=== PATIENT | male | born 1975 | race Caucasian/White ===

== ENCOUNTER 2020-05-18 13:23 | Outpatient (REF) | payer OTHER, SELFPAY | END 2020-05-18 13:24 | disposition home or self-care (01) | LOC: HO.LAB 13:23 | PROVIDERS: Visit Provider Internal Medicine | DX: Z20.828 Contact with and (suspected) exposure to other viral communicable diseases (principal) | CPT/HCPCS: U0003 ==

== ENCOUNTER 2020-09-18 22:15 | Emergency (ER) | payer OTHER, SELFPAY ==
[2020-09-18 22:18] VITALS: BP 208/100; PULSE 85; RESP 18; TEMP 36.4; O2SAT 98; BMI 38.8
[2020-09-18 22:38] LABS: Glucose Urine UA NEG (NEG); Leukocyte Esterase Urine NEG (NEG); Nitrite Urine NEG (NEG); Urine Blood 1+ (NEG); Urine Ketones NEG (NEG); Urine Protein NEG (NEG-TRACE)
[2020-09-18 22:40] LABS: Appearance Urine CLEAR; Color Urine YELLOW
[2020-09-18 22:42] LABS: Bacteria Urine TRACE /LPF; RBC Urine 0-2 /HPF (0); Squamous Epithelial Cell Urine TRACE /LPF; WBC Urine 0-2 /HPF (0-4)
[2020-09-18 23:05] VITALS: BP 175/110; PULSE 85; RESP 20
--- NOTE | 2020-09-18 23:08 | PC.NURSE ---
Pt ambulating from Triage into room 12. Pt is CAOx4, speaking full sentences, ambulating with a steady gait. Pt reports left sided lower back pain that started last week. Pt was seen by his PCP and prescribed 4 days of Meloxicam. Pt reports some relief while on Meloxicam. 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 Pt reports a family history of kidney stones, denies any history of kidney stones himself. Pt denies fever, -N/V/D, denies urinary symptoms. Pt notably anxious, concerned about his elevated BP, reports a slow pulse last night so he did not take his Atenolol. States he drove to his [facility] and obtained a 12 lead EKG on himself last night, pt states my EKG looked absolutely perfect. VSS at this time, pt noted to be hypertensive. Plan to monitor BP. Awaiting primary MD salazar.
--- NOTE | 2020-09-18 23:34 | ECG_ITS ---
Test Reason : HTN Blood Pressure : / mmHG Vent. Rate : 081 BPM Atrial Rate : 081 BPM P-R Int : 188 ms QRS Dur : 080 ms QT Int : 370 ms P-R-T Axes : 044 005 053 degrees QTc Int : 429 ms Normal sinus rhythm Normal ECG When compared with ECG of 18-SEP-2020 23:52, No significant change was found Referred By: Eliza Barba Electronically Signed By: CHRISTAL ANDREWS
[2020-09-18 23:48] VITALS: BP 140/99; PULSE 86; RESP 20
--- NOTE | 2020-09-18 23:52 | ED_ITS ---
HPI - General Adult General Chief complaint: Abdominal Pain Stated complaint: Multiple complaints Time Seen by Provider: 09/18/20 23:04 Source: patient Mode of arrival: ambulatory Limitations: no limitations History of Present Illness HPI narrative: Patient comes to emergency room complaining of ?feeling floaty . Patient states that he has a sensation when his blood pressure is high. 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 Patient usually takes atenolol for anxiety, which usually does help with his blood pressure. However, patient does not have other treatment for blood pressure. Of note, patient patient complaining of left lower back pain, thinks he pulled a muscle, he went to see his primary care physician on September 13. Patient states he took meloxicam, initially helped, but he still having discomfort. Patient denies hematuria or dysuria, no fever chills. Patient states that the most concerning prior to these blood pressure. Patient denies chest pain, no shortness of breath, no diaphoresis. Related Data Previous Rx's Medication Instructions Recorded atenolol 50 mg tablet 50 mg PO DAILY #90 tab 07/23/20 bupropion HCl 150 mg tablet,12 hr 150 mg PO BID 90 Days #180 tab 08/02/20 sustained-release meloxicam 7.5 mg tablet 7.5 mg PO DAILY 4 Days #5 tab 09/13/20 losartan 25 mg PO DAILY #30 tab 09/19/20 Allergies Allergy/AdvReac Type Severity Reaction Status Date / Time Penicillins [PENICILLINS] Allergy Severe NAUSEA & Unverified 04/05/20 15:26 VOMITING bee pollen [BEE STINGS] Allergy Unknown UNKNOWN Unverified 04/05/20 15:26 penicillamine Allergy Unknown Verified 03/19/20 00:00 bees, wasps Allergy Unknown Uncoded 03/19/20 00:00 BEES/WASPS Allergy Unknown Uncoded 04/18/19 00:00 penicillin Allergy Unknown Uncoded 04/18/19 00:00 Review of Systems Review of Systems: Constitutional : No Weight loss, No Fever, No Chills, No Night Sweats, No Fatigue, No Malaise ENT/Mouth : No Hearing loss, No Ear Pain, No Nasal Congestion, No Sinus Pain, No Hoarseness, No sore throat, No Rhinorrhea, No Swallowing Difficulty Eyes: No Eye Pain, No Swelling, No Redness, No Foreign Body, No Discharge, No Vision Changes Cardiovascular : No Chest Pain, No SOB, No Dyspnea on Exertion, No Orthopnea, No Edema, No Palpitations Respiratory : No Cough, No Sputum, No Wheezing, No Smoke Exposure, No Dyspnea Gastrointestinal : No Nausea, No Vomiting, No Diarrhea, No Constipation, No abdominal Pain, No Hematochezia, No Melena Genitourinary : no irregular bleeding, No Dysuria, No Urinary Frequency, No Hematuria, No Urinary Incontinence, No Urgency, No Flank Pain, No Urinary Flow Changes, No Hesitancy Musculoskeletal : No joint pain, complaining of left lower back pain, worse with movement, intermittent, No Joint Swelling Skin : No Skin Lesions, No rash Neuro : No Weakness, No Numbness, No Paresthesias, No Loss of Consciousness, No Dizziness, No Headache Psych : No Anxiety/Panic, No Depression, No SI/HI/AH/VH, No Social Issues, Heme/Lymph: No Bruising, No Bleeding,No Lymphadenopathy Endocrine : No Polyuria, No Polydipsia, No Temperature Intolerance [facility] Past Medical History Medical History Anxiety Compression fracture of L2 HTN (hypertension) Surgical History Hx of appendectomy Social History Social History Advance Directives: No Physical Exam Vital Signs: Vital Signs: Last Vital Signs Temp 97.5 F 09/18/20 22:18 Pulse 86 09/18/20 23:59 Resp 20 09/18/20 23:48 BP 140/99 H 09/18/20 23:59 Pulse Ox 98 09/18/20 22:18 Body Mass Index 38.8 Appearance: Alert. Oriented X3. No acute distress. Eyes: Pupils equal, round and reactive to light. ENT: Pharynx normal. Neck: Normal inspection. Neck supple. No lymph nodes noted. No crepitus CVS: Normal heart rate and rhythm. Pulses normal. Normal S1 and S2 Respiratory: No respiratory distress. Breath sounds normal. No Wheezing. No rales Abdomen: Soft and nontender. No rigidity. No distention. good BS x4 Skin: Skin warm and dry. Normal skin color. Normal skin turgor. Extremities: No lower extremity edema. No lower extremity edema. No Lacerations. No Rash Neuro: Oriented X 3. No motor deficit. No sensory deficit. Moving all extermities. No slurred speech. Course Course Course Narrative: On arrival, patient's blood pressure was 208/100, without treatment, blood pressure reduced to 140/99, heart rate 86. I discussed with the patient that he needs to be on a 2nd blood pressure medication for better BP control, patient agrees. Patient states that he has physical exam with his PCP in about a month. I discussed with the patient that if he has any issues with his blood pressure medication in the meantime, he can return to the emergency room. Medical Decision Making Lab Data Result diagrams: 09/18/20 23:58 09/18/20 23:58 Labs: Lab Results 09/18/20 09/18/20 09/18/20 Range/Units 22:28 23:58 23:58 WBC 9.1 (4.8-10.8) X10*3/uL RBC 4.91 (4.60-5.80) X10*6/uL Hgb 15.0 (14.0-18.0) g/dl Hct 44.1 (42-52) % MCV 89.8 (80-98) fL MCH 30.5 (27.0-33.0) pg MCHC 34.0 (31.0-36.0) g/dl RDW 12.4 (11.0-16.0) % Plt Count 189 (160-400) X10*3/uL MPV 8.7 L (9.4-12.4) fL Immature Gran % (Auto) 0.3 (0.0-0.4) % Neut % (Auto) 68.4 (45-73) % Lymph % (Auto) 21.1 (20-40) % [place] % (Auto) 6.8 (2-11) % Eos % (Auto) 2.8 (0-4) % Baso % (Auto) 0.6 (0-2) % Lymph # (Auto) 1.9 (1.2-4.9) X10*3/uL [place] # (Auto) 0.6 (0.1-1.2) X10*3/uL Eos # (Auto) 0.3 (0.0-0.4) X10*3/uL Baso # (Auto) 0.1 (0.0-0.2) X10*3/uL Abs Immat Gran (auto) 0.03 (0.00-0.03) X10*3/uL Absolute Neuts (auto) 6.2 (2.0-8.3) X10*3/uL Absolute Nucleated RBC 0.000 (0.0-0.012) X10*3/uL Nucleated RBC % (auto) 0.0 (0.0-0.2) /100WBC Sodium 139 (135-145) mmol/L Potassium 3.7 (3.3-5.1) mmol/L Chloride 103 (96-108) mmol/L Carbon Dioxide 25 (22-29) mmol/L Anion Gap 15 (12-20) BUN 22 H (9-16) mg/dL Creatinine 1.26 (0.5-1.4) mg/dL Estim Creat Clear Calc 94.3 Estimated GFR > 60 Random Glucose 96 (60-115) mg/dL Calcium 8.7 (8.4-10.2) mg/dL Total Bilirubin 0.7 (0.0-1.0) mg/dL Direct Bilirubin 0.2 (0.0-0.5) mg/dL AST 28 (5-37) U/L ALT 33 (0-40) U/L Alkaline Phosphatase 64 (39-117) U/L Troponin I High Sens (<3.5-35.0) ng/L Total Protein 6.8 (6.5-8.0) g/dL Albumin 4.1 (3.5-5.0) g/dL Urine Color YELLOW Urine Appearance CLEAR Urine pH 6.0 (5.0-8.0) Ur Specific [place] 1.020 (1.005-1.025) Urine Protein NEG (NEG-TRACE) MG/DL Urine Glucose (UA) NEG (NEG) MG/DL Urine Ketones NEG (NEG) MG/DL Urine Blood 1+ H (NEG) Urine Nitrite NEG (NEG) Ur Leukocyte Esterase NEG (NEG) Urine RBC 0-2 (0) /HPF Urine WBC 0-2 (0-4) /HPF Ur Squamous Epith Cells TRACE /LPF Urine Bacteria TRACE /LPF 09/18/20 Range/Units 23:58 WBC (4.8-10.8) X10*3/uL RBC (4.60-5.80) X10*6/uL Hgb (14.0-18.0) g/dl Hct (42-52) % MCV (80-98) fL MCH (27.0-33.0) pg MCHC (31.0-36.0) g/dl RDW (11.0-16.0) % Plt Count (160-400) X10*3/uL MPV (9.4-12.4) fL Immature Gran % (Auto) (0.0-0.4) % Neut % (Auto) (45-73) % Lymph % (Auto) (20-40) % [place] % (Auto) (2-11) % Eos % (Auto) (0-4) % Baso % (Auto) (0-2) % Lymph # (Auto) (1.2-4.9) X10*3/uL [place] # (Auto) (0.1-1.2) X10*3/uL Eos # (Auto) (0.0-0.4) X10*3/uL Baso # (Auto) (0.0-0.2) X10*3/uL Abs Immat Gran (auto) (0.00-0.03) X10*3/uL Absolute Neuts (auto) (2.0-8.3) X10*3/uL Absolute Nucleated RBC (0.0-0.012) X10*3/uL Nucleated RBC % (auto) (0.0-0.2) /100WBC Sodium (135-145) mmol/L Potassium (3.3-5.1) mmol/L Chloride (96-108) mmol/L Carbon Dioxide (22-29) mmol/L Anion Gap (12-20) BUN (9-16) mg/dL Creatinine (0.5-1.4) mg/dL Estim Creat Clear Calc Estimated GFR Random Glucose (60-115) mg/dL Calcium (8.4-10.2) mg/dL Total Bilirubin (0.0-1.0) mg/dL Direct Bilirubin (0.0-0.5) mg/dL AST (5-37) U/L ALT (0-40) U/L Alkaline Phosphatase (39-117) U/L Troponin I High Sens < 3.5 (<3.5-35.0) ng/L Total Protein (6.5-8.0) g/dL Albumin (3.5-5.0) g/dL Urine Color Urine Appearance Urine pH (5.0-8.0) Ur Specific [place] (1.005-1.025) Urine Protein (NEG-TRACE) MG/DL Urine Glucose (UA) (NEG) MG/DL Urine Ketones (NEG) MG/DL Urine Blood (NEG) Urine Nitrite (NEG) Ur Leukocyte Esterase (NEG) Urine RBC (0) /HPF Urine WBC (0-4) /HPF Ur Squamous Epith Cells /LPF Urine Bacteria /LPF ECG Data Attestation: I personally reviewed and interpreted this ECG as follows: (Heart rate 81, QTC 429, a segment depression or elevation, no T-wave inversion) Discharge Plan Discharge Clinical Impression: Hypertension Qualifiers: Hypertension type: unspecified Qualified Code(s): I10 - Essential (primary) hypertension Patient Disposition: Home, Self-Care Instructions: Hypertension (ED) Additional Instructions: Please follow-up with your primary care physician tomorrow. If you have any worsening or new symptoms, please return to the emergency room or call 911 Prescriptions: New losartan 25 mg tablet 25 mg PO DAILY Qty: 30 RF: 0 No Action atenolol 50 mg tablet 50 mg PO DAILY Qty: 90 RF: 0 bupropion HCl [Wellbutrin SR] 150 mg tablet sustained-release 12 hr 150 mg PO BID 90 Days Qty: 180 RF: 0 meloxicam 7.5 mg tablet 7.5 mg PO DAILY 4 Days Qty: 5 RF: 0
--- NOTE | 2020-09-18 23:58 | PC.NURSE ---
Labs and EKG obtained and sent. Per , to hold Lopressor due to BP WNL. Awaiting lab results.
[2020-09-18 23:59] VITALS: BP 140/99; PULSE 86
[2020-09-19 00:04] LABS: MANUAL DIFF FLAG NO
[2020-09-19 00:10] LABS: Basophils Absolute Auto 0.1 X10*3/uL (0.0-0.2); Basophils Percent Auto 0.6 % (0-2); Eosinophils Absolute Auto 0.3 X10*3/uL (0.0-0.4); Eosinophils Percent Auto 2.8 % (0-4); Hematocrit 44.1 % (42-52); Imm Gran Abs Auto 0.03 X10*3/uL (0.00-0.03); Imm Gran Pct Auto 0.3 % (0.0-0.4); Lymphocytes Absolute Auto 1.9 X10*3/uL (1.2-4.9); Lymphocytes Percent Auto 21.1 % (20-40); Mean Corpuscular Hemoglobin 30.5 pg (27.0-33.0); Mean Corpuscular Volume 89.8 fL (80-98); Mean Platelet Volume 8.7 fL (9.4-12.4); Monocytes Absolute Auto 0.6 X10*3/uL (0.1-1.2); Monocytes Percent Auto 6.8 % (2-11); Neutrophils Absolute Auto 6.2 X10*3/uL (2.0-8.3); Neutrophils Percent Auto 68.4 % (45-73); Platelet Count 189 X10*3/uL (160-400); Red Blood Count 4.91 X10*6/uL (4.60-5.80); Red Cell Distribution Width 12.4 % (11.0-16.0); White Blood Count 9.1 X10*3/uL (4.8-10.8)
[2020-09-19 00:37] LABS: Troponin-I High Sensitivity < 3.5 ng/L (<3.5-35.0)
[2020-09-19 00:56] LABS: Alanine Aminotransferase 33 U/L (0-40); Albumin Level 4.1 g/dL (3.5-5.0); Alkaline Phosphatase 64 U/L (39-117); Anion Gap 15 (12-20); Aspartate Amino Transferase 28 U/L (5-37); Bilirubin Direct 0.2 mg/dL (0.0-0.5); Bilirubin Total 0.7 mg/dL (0.0-1.0); Blood Urea Nitrogen 22 mg/dL (9-16); Calcium 8.7 mg/dL (8.4-10.2); Carbon Dioxide 25 mmol/L (22-29); Chloride 103 mmol/L (96-108); Creatinine Clr Calc Pharmacy 94.3; Estimated Glomerular Filt Rate > 60; Glucose Random 96 mg/dL (60-115); Potassium 3.7 mmol/L (3.3-5.1); Sodium 139 mmol/L (135-145); Total Protein 6.8 g/dL (6.5-8.0)
[2020-09-19 01:40] VITALS: BP 143/100; PULSE 76; RESP 16
== END 2020-09-19 01:45 | disposition home or self-care (01) ==
PROVIDERS: Emergency Provider Emergency Medicine; PCP Nurse Practitioner Family
DX: I10 Essential (primary) hypertension (principal); F41.9 Anxiety disorder, unspecified; Z79.899 Other long term (current) drug therapy
CPT/HCPCS: 36415; 80048; 80076; 81001; 84484; 85025; 93005; 99283; 99284

== ENCOUNTER 2021-07-20 20:20 | Emergency (ER) | payer OTHER, SELFPAY ==
--- NOTE | 2021-07-20 23:14 | ECG_ITS ---
Test Reason : CHEST PAIN Blood Pressure : / mmHG Vent. Rate : 086 BPM Atrial Rate : 086 BPM P-R Int : 202 ms QRS Dur : 086 ms QT Int : 402 ms P-R-T Axes : 061 016 059 degrees QTc Int : 481 ms Normal sinus rhythm Prolonged QT Abnormal ECG When compared with ECG of 18-SEP-2020 23:52, No significant change was found Referred By: Generic ED Physician Electronically Signed By:NIKI LOERA MD
[2021-07-20 23:31] VITALS: BP 172/102; PULSE 80; RESP 18; TEMP 36.6; O2SAT 97; BMI 36.9
[2021-07-20 23:43] LABS: MANUAL DIFF FLAG NO
[2021-07-20 23:46] LABS: Basophils Percent Auto 0.4 % (0-2); Eosinophils Absolute Auto 0.2 X10*3/uL (0.0-0.4); Eosinophils Percent Auto 2.3 % (0-4); Hematocrit 45.9 % (42.0-52.0); Hemoglobin 15.8 g/dl (14.0-18.0); Imm Gran Abs Auto 0.02 X10*3/uL (0.00-0.03); Imm Gran Pct Auto 0.2 % (0.0-0.4); Lymphocytes Absolute Auto 2.4 X10*3/uL (1.2-4.9); Lymphocytes Percent Auto 23.1 % (20-40); Mean Corpuscular HGB Conc 34.4 g/dl (31.0-36.0); Mean Corpuscular Hemoglobin 31.3 pg (27.0-33.0); Mean Corpuscular Volume 90.9 fL (80.0-98.0); Mean Platelet Volume 8.7 fL (9.4-12.4); Monocytes Absolute Auto 0.8 X10*3/uL (0.1-1.2); Monocytes Percent Auto 7.1 % (2-11); Neutrophils Absolute Auto 7.1 x10*3/uL (2.0-8.3); Neutrophils Percent Auto 66.9 % (45-73); Platelet Count 259 X10*3/uL (160-400); Red Blood Count 5.05 X10*6/uL (4.60-5.80); Red Cell Distribution Width 12.2 % (11.0-16.0); White Blood Count 10.5 X10*3/uL (4.8-10.8)
[2021-07-21] LABS: Anion Gap 12 (12-20); Blood Urea Nitrogen 16 mg/dL (9-16); Calcium 9.9 mg/dL (8.4-10.2); Carbon Dioxide 31 mmol/L (22-29); Chloride 103 mmol/L (96-108); Creatinine Clr Calc Pharmacy 79.5; Estimated Glomerular Filt Rate 53; Glucose Random 140 mg/dL (60-115); Potassium 3.6 mmol/L (3.3-5.1); Sodium 142 mmol/L (135-145)
--- NOTE | 2021-07-21 00:03 | ED.GENADULT ---
HPI - General Adult General Chief complaint: General Medical Stated complaint: elevated bp blood sugar 82 Time Seen by Provider: 07/21/21 00:03 Source: patient Mode of arrival: ambulatory Limitations: no limitations History of Present Illness HPI narrative: PATIENT'S HISTORY OF HYPERTENSION ANXIETY ON WELLBUTRIN TAKING LOSARTAN 50 MG DAILY AND ATENOLOL 50 MG DAILY TODAY UNDER MORE STRESS NOT SLEEPING WELL CHECKED BLOOD PRESSURE AROUND 200/100 RANGE AT HOME. DENIES CHEST PAIN OR SHORTNESS OF BREATH HAS SOME HEADACHE CHECKED HIS BLOOD PRESSURE AT HOME WAS 160/110. PATIENT DOES MISS HIS MEDICINE ONCE IN A VAN BUT DOES NOT THINK THAT HE MISSED THE MEDICINE TODAY ON ARRIVAL PATIENT'S BLOOD PRESSURE WAS 172/102 Related Data Home Medications Medication Instructions Recorded Confirmed cetirizine 10 mg tablet (Zyrtec) 10 mg PO DAILY PRN 10/03/20 11/12/20 Previous Rx's Medication Instructions Recorded bupropion HCl 300 mg 24 hr tablet, 300 mg PO QAM #90 tab 06/24/21 extended release atenolol 50 mg tablet 50 mg PO DAILY #90 tab 06/29/21 buspirone 5 mg tablet 10 mg PO BID #120 tab 07/03/21 losartan 50 mg tablet 50 mg PO DAILY #90 tab 07/10/21 hydrochlorothiazide 25 mg tablet 25 mg PO QAM #30 tab 07/21/21 lorazepam 1 mg tablet (Ativan) 1 mg PO BEDTIME PRN #14 tab 07/21/21 Allergies Allergy/AdvReac Type Severity Reaction Status Date / Time Penicillins [PENICILLINS] Allergy Severe NAUSEA & Unverified 11/12/20 14:26 VOMITING bee pollen [BEE STINGS] Allergy Unknown UNKNOWN Unverified 11/12/20 14:26 penicillamine Allergy Unknown unknown Verified 11/12/20 14:26 bees, wasps Allergy Unknown unknown Uncoded 11/12/20 14:26 BEES/WASPS Allergy Unknown unknown Uncoded 11/12/20 14:26 penicillin Allergy Unknown unknown Uncoded 11/12/20 14:26 Review of Systems Review of Systems: Yes all other systems are reviewed and are negative PMFSH Past Medical History Medical History Anxiety Compression fracture of L2 HTN (hypertension) Surgical History Hx of appendectomy Social History Social History Alcohol intake: current Alcohol intake frequency: a few times a month Advance Directives: No Physical Exam Vital Signs: Vital Signs: Last Vital Signs Temp 97.9 F 07/20/21 23:31 Pulse 77 07/21/21 00:27 Resp 16 07/21/21 00:25 BP 161/100 H 07/21/21 00:27 Pulse Ox 98 07/21/21 00:25 BMI result Body Mass Index 36.9 APPEARANCE: ALERT. ORIENTED X3. NO ACUTE DISTRESS. ANXIOUS ENT: PHARYNX NORMAL. ORAL MUCOSA MOIST NECK: NORMAL INSPECTION. NECK SUPPLE. CVS: NORMAL HEART RATE AND RHYTHM. PULSES NORMAL. RESPIRATORY: NO RESPIRATORY DISTRESS. EQUAL AIR ENTRY BILATERAL, NO WHEEZING/RALES/RHONCHI ABDOMEN: SOFT AND NONTENDER. BOWEL SOUNDS ARE PRESENT, NO MASS PALPABLE, NO CVA TENDERNESS SKIN: SKIN WARM AND DRY. NORMAL SKIN COLOR. NORMAL SKIN TURGOR. EXTREMITIES: NO LOWER EXTREMITY EDEMA. NO CALF TENDERNESS NEURO: ORIENTED X 3. NO MOTOR DEFICIT. NO SENSORY DEFICIT.NO CEREBELLAR SIGNS , CRANIAL NERVES II-XII INTACT Medical Decision Making MDM Narrative Medical decision making narrative: PATIENT HISTORY OF HYPERTENSION ON WELLBUTRIN WITH INCREASED ANXIETY AND POOR SLEEP HIM IT ELEVATED BLOOD PRESSURE FOR LAST FEW DAYS WITH INCREASED ANXIETY. PATIENT ADVISED TAKE SOME MEDICATION TO RELAX WILL INCREASE THE DOSE OF LOSARTAN TO 50 MG TWICE DAILY AND WILL ADD HYDROCHLOROTHIAZIDE IN THE MORNING ALSO PATIENT ADVISED TO DRINK PLENTY OF FLUIDS FOR RENAL INSUFFICIENCY Lab Data Lab results reviewed: Yes I reviewed the patient's lab results. Result diagrams: 07/20/21 23:36 07/20/21 23:36 Labs: Lab Results 07/20/21 07/20/21 07/20/21 Range/Units 23:36 23:36 23:36 WBC 10.5 (4.8-10.8) X10*3/uL RBC 5.05 (4.60-5.80) X10*6/uL Hgb 15.8 (14.0-18.0) g/dl Hct 45.9 (42.0-52.0) % MCV 90.9 (80.0-98.0) fL MCH 31.3 (27.0-33.0) pg MCHC 34.4 (31.0-36.0) g/dl RDW 12.2 (11.0-16.0) % Plt Count 259 (160-400) X10*3/uL MPV 8.7 L (9.4-12.4) fL Immature Gran % (Auto) 0.2 (0.0-0.4) % Neut % (Auto) 66.9 (45-73) % Lymph % (Auto) 23.1 (20-40) % [place] % (Auto) 7.1 (2-11) % Eos % (Auto) 2.3 (0-4) % Baso % (Auto) 0.4 (0-2) % Lymph # (Auto) 2.4 (1.2-4.9) X10*3/uL [place] # (Auto) 0.8 (0.1-1.2) X10*3/uL Eos # (Auto) 0.2 (0.0-0.4) X10*3/uL Baso # (Auto) 0.0 (0.0-0.2) X10*3/uL Abs Immat Gran (auto) 0.02 (0.00-0.03) X10*3/uL Absolute Neuts (auto) 7.1 (2.0-8.3) x10*3/uL Absolute Nucleated RBC 0.000 (0.0-0.012) X10*3/uL Nucleated RBC % (auto) 0.0 (0.0-0.2) /100WBC Sodium 142 (135-145) mmol/L Potassium 3.6 (3.3-5.1) mmol/L Chloride 103 (96-108) mmol/L Carbon Dioxide 31 H (22-29) mmol/L Anion Gap 12 (12-20) BUN 16 (9-16) mg/dL Creatinine 1.44 H (0.5-1.4) mg/dL Estim Creat Clear Calc 79.5 Estimated GFR 53 Random Glucose 140 H D (60-115) mg/dL Calcium 9.9 D (8.4-10.2) mg/dL Troponin I High Sens < 3.5 (<3.5-35.0) ng/L ECG Data Attestation: I personally reviewed and interpreted this ECG as follows: Interpretation: NORMAL SINUS RHYTHM HEART RATE 86 BEATS PER MINUTE SLIGHTLY PROLONGED QT INTERVAL TO [address]-T CHANGES NO ACUTE ISCHEMIA Discharge Plan Discharge Clinical Impression: Anxiety HTN (hypertension) Qualifiers: Hypertension type: primary hypertension Qualified Code(s): I10 - Essential (primary) hypertension Patient Disposition: Home, Self-Care Instructions: Chronic Hypertension (ED), Anxiety (ED) Additional Instructions: DRINK PLENTY OF FLUIDS INCREASED DOSE OF LOSARTAN TO 50 MG TWICE DAILY START TAKING HYDROCHLOROTHIAZIDE 25 MG DAILY IN THE MORNING ATIVAN FOR ANXIETY AND SLEEP AT BEDTIME FOLLOW-UP WITH YOUR PCP WITHIN 2 WEEKS TO RECHECK YOUR KIDNEY FUNCTIONS Prescriptions: New hydrochlorothiazide 25 mg tablet 25 mg PO QAM Qty: 30 RF: 0 lorazepam [Ativan] 1 mg tablet 1 mg PO BEDTIME PRN (Reason: anxiety) Qty: 14 RF: 0 No Action bupropion HCl 300 mg tablet extended release 24 hr 300 mg PO QAM Qty: 90 RF: 1 atenolol 50 mg tablet 50 mg PO DAILY Qty: 90 RF: 0 buspirone 5 mg tablet 10 mg PO BID Qty: 120 RF: 4 losartan 50 mg tablet 50 mg PO DAILY Qty: 90 RF: 1 cetirizine [Zyrtec] 10 mg tablet 10 mg PO DAILY PRNRF: 0
[2021-07-21 00:06] LABS: Troponin-I High Sensitivity < 3.5 ng/L (<3.5-35.0)
[2021-07-21 00:25] VITALS: BP 161/100; PULSE 78; RESP 16; O2SAT 98
[2021-07-21 00:27] VITALS: BP 161/100; PULSE 77
[2021-07-21] MEDS: Losartan Potassium 50 MG TABLET PO (00:27)
[2021-07-21] MEDS: LORazepam 1 MG TABLET PO (00:27)
--- NOTE | 2021-07-21 00:44 | PC.NURSE ---
Pt reports not feeling well enough to leave @ present time. Plan to reattempt DC @ 0100.
[2021-07-21 01:05] VITALS: BP 140/89; PULSE 69; RESP 16
== END 2021-07-21 01:08 | disposition home or self-care (01) ==
PROVIDERS: Emergency Provider Internal Medicine; PCP Nurse Practitioner Family
DX: I10 Essential (primary) hypertension (principal); F41.1 Generalized anxiety disorder; F43.0 Acute stress reaction; Z79.899 Other long term (current) drug therapy
CPT/HCPCS: 36415; 80048; 84484; 85025; 93005; 99283; 99284

== ENCOUNTER 2021-08-15 10:25 | Outpatient (REF) | payer OTHER, SELFPAY ==
[2021-08-15 13:53] LABS: Appearance Urine CLEAR; Color Urine STRAW; Glucose Urine UA NEG (NEG); Leukocyte Esterase Urine NEG (NEG); Nitrite Urine NEG (NEG); PH 5.5 (5.0-8.0); Specific Gravity - Urine <= 1.005 (1.005-1.025); Urine Blood NEG (NEG); Urine Ketones NEG (NEG); Urine Protein NEG (NEG-TRACE)
[2021-08-15 14:14] LABS: Alanine Aminotransferase 32 U/L (0-40); Albumin Level 4.1 g/dL (3.5-5.0); Alkaline Phosphatase 82 U/L (39-117); Anion Gap 12 (12-20); Aspartate Amino Transferase 29 U/L (5-37); Bilirubin Total 0.6 mg/dL (0.0-1.0); Blood Urea Nitrogen 20 mg/dL (9-16); Calcium 9.8 mg/dL (8.4-10.2); Carbon Dioxide 28 mmol/L (22-29); Chloride 99 mmol/L (96-108); Cholesterol 220 mg/dL; Estimated Glomerular Filt Rate 58; Glucose Fasting 95 mg/dL (60-99); HDL Cholesterol 36 mg/dL; LDL Cholesterol Calculated 127 mg/dl; Potassium 3.7 mmol/L (3.3-5.1); Sodium 135 mmol/L (135-145); Total Protein 7.1 g/dL (6.5-8.0); Triglycerides 286 mg/dL
[2021-08-15 14:22] LABS: TSH reflex Free T4 2.13 uIU/mL (0.32-4.0)
== END 2021-08-15 10:26 | disposition home or self-care (01) ==
LOC: HO.HMGCLDS 10:25
PROVIDERS: PCP Nurse Practitioner Family; Visit Provider Nurse Practitioner Family
DX: I10 Essential (primary) hypertension (principal)
CPT/HCPCS: 36415; 80053; 80061; 81003; 84443

== ENCOUNTER 2021-08-30 08:48 | Outpatient (REF) | payer OTHER, SELFPAY ==
--- NOTE | 2021-09-05 12:35 | MHC.AU.AEV ---
Adult Audiological Evaluation Date of Visit: 08/30/21 Reason for Appointment: Patient has been experiencing constant, long-standing, high-pitched tinnitus that is present in both ears, but worse in the right ear. His ears frequently feels blocked, and he will need to move his jaw around to help pop his ears and relieve the pressure. This has contributed to TMJ problems. History of head traumas. History of frequent ear infections in childhood. Patient received several sets of PE tubes in childhood, as well as a tonsillectomy and adenoidectomy. Patient does not feel he is experiencing significant hearing difficulty in day-to-day life. Does patient feel they have a hearing loss?: Unsure Has hearing been tested previously?: Yes Previous Hearing Test Results: 30+ years ago at [facility]- results not available for review Hearing Handicap Inventory Does a hearing problem cause you to feel embarrassed when meeting new people?: Sometimes Does a hearing problem cause you to feel frustrated when talking to members of your family?: Sometimes Do you have difficulty when someone speaks in a whisper?: No Do you feel handicapped by a hearing problem?: Yes Does a hearing problem cause you difficulty when visiting friends, relatives, or neighbors?: Sometimes Does a hearing problem cause you to attend pentecostal service services less often than you would like?: No Does a hearing problem cause you to have arguments with family members?: Sometimes Does a hearing problem cause you difficulty when listening to TV or radio?: Sometimes Do you feel that any difficult with your hearing limits or hampers your personal or social life?: Sometimes Does a hearing problem cause you difficulty when in a restaurants with relatives or friends?: Sometimes HHIE SCORE: 18 Based on HHIE score, patient has: Mild to moderate perceived hearing handicap Ear History: Ear Deformity: None Reported Recent Ear Drainage: None Reported Recent Ear Pain: Right Ear Family History of Hearing Loss?: No Recent Ear Infections: None Reported Ear Infections in Childhood: Both Ears History of Ear Wax Buildup: None Reported Previous Ear Surgery: PE tubes in childhood Bothersome Tinnitus/Ringing/Noises in Ears: Both ears, but worse in right Ear used on the phone: Left Ear Blocked/Full Sensation in Ear(s): Both ears, but worse in right History: No Medical History: Medical History: Headache, Head Injury, High Blood Pressure Medication List: Atenolol, Wellbutrin, Buspar, Lorsartan, Hydrochlorothiazide, Doxepin Otoscopy: Right Ear: Unremarkable Left Ear: Unremarkable Tympanometry: Tympanometry performed due to: History of middle ear dysfunction Right Ear: Hypercompliant Middle Ear System (Type Ad) Left Ear: Normal Middle Ear System (Type A) Hearing Evaluation: Transducer(s) Used: Insert Earphones Method: Conventional Audiometry Stimuli Used: Pure Tones Right Ear: Description of Hearing: Normal to moderately-severe sensorineural hearing loss (worse on the right side) Left Ear: Description of Hearing: Normal to moderately-severe sensorineural hearing loss Speech Recognition Threshold (SRT): Method Used: Recorded Lists Stimuli Used: Spondee Words Right Ear: 20 dBHL Left Ear: 15 dBHL Word Discrimination: Method: Recorded Lists Word Lists Used:: W-22 Right Ear: 92% at 60 dBHL Left Ear: 96% at 55 dBHL Most Comfortable Level (MCL): Right Ear: 60 dBHL Left Ear: 55 dBHL Tinnitus Assessment: Tinnitus Match- Pitch/Frequency: 8000 Hz Tinnitus Match- Loudness: 60 dBHL Minimum Masking Level (Amount of white noise needed to mask tinnitus): Binuaral: 50 dBHL Right: 50 dBHL Left: 30 dBHL Recommendations: Referral to Ear, Nose, and Throat is recommended to address asymmetrical sensorineural hearing loss, asymmetrical tinnitus, and aural pressure. A referral to a TMJ specialist may also be beneficial, to determine if his TMJ problems are contributing of any of the aforementioned concerns. Discussed tinnitus relief strategies. Research shows Cognitive Behavior Therapy (CBT) can help re-train how the brain perceives and reacts to the tinnitus. Masking noises, such as fans, radio, tv, or noise generators, can be used when the tinnitus is bothersome. There are also many smartphone apps available that provide access to a wide range of masking sounds. When hearing loss is present, many people find that hearing aids can provide tinnitus relief. Patient does not feel the hearing loss itself is greatly impacting his daily life at this time; therefore hearing aids may not yet be warranted. If he wanted to demo a pair of hearing aids, he is welcome to schedule a hearing aid evaluation. Audiological re-evaluation in 1 year, or sooner at physician's discretion. Diagnosis: Primary Diagnosis: H90.3 Bilateral Sensorineural Hearing Loss Secondary Diagnosis: H93.13 Tinnitus, Bilateral Signature: Provider: Alexsander Leo, CCC-A
== END 2021-08-30 08:49 | disposition home or self-care (01) ==
LOC: HO.SH 08:48
PROVIDERS: Visit Provider Nurse Practitioner Family
DX: H90.3 Sensorineural hearing loss, bilateral (principal); H93.13 Tinnitus, bilateral
CPT/HCPCS: 92557; 92567

== ENCOUNTER 2021-11-02 11:03 | Outpatient (REF) | payer OTHER, SELFPAY ==
[2021-11-02 13:09] LABS: Cholesterol 232 mg/dL; HDL Cholesterol 40 mg/dL; LDL Cholesterol Calculated 166 mg/dl; Triglycerides 134 mg/dL
== END 2021-11-02 11:04 | disposition home or self-care (01) ==
LOC: HO.HMGCLDS 11:03
PROVIDERS: PCP Nurse Practitioner Family; Visit Provider Nurse Practitioner Family
DX: E78.5 Hyperlipidemia, unspecified (principal)
CPT/HCPCS: 36415; 80061

== ENCOUNTER 2022-01-27 09:40 | Outpatient (REF) | payer OTHER, SELFPAY ==
[2022-01-27 12:03] LABS: Alanine Aminotransferase 31 U/L (0-40); Albumin Level 4.2 g/dL (3.5-5.0); Alkaline Phosphatase 70 U/L (39-117); Anion Gap 13 (12-20); Aspartate Amino Transferase 31 U/L (5-37); Bilirubin Total 0.6 mg/dL (0.0-1.0); Blood Urea Nitrogen 25 mg/dL (9-16); Calcium 9.4 mg/dL (8.4-10.2); Carbon Dioxide 26 mmol/L (22-29); Chloride 106 mmol/L (96-108); Cholesterol 209 mg/dL; Estimated Glomerular Filt Rate 54; Glucose Random 104 mg/dL (60-115); HDL Cholesterol 52 mg/dL; LDL Cholesterol Calculated 133 mg/dl; Potassium 4.5 mmol/L (3.3-5.1); Sodium 140 mmol/L (135-145); Total Protein 7.1 g/dL (6.5-8.0); Triglycerides 123 mg/dL
== END 2022-01-27 09:41 | disposition home or self-care (01) ==
LOC: HO.HMGCLDS 09:40
PROVIDERS: Visit Provider Nurse Practitioner Family
DX: E78.5 Hyperlipidemia, unspecified (principal)
CPT/HCPCS: 36415; 80053; 80061

== ENCOUNTER 2022-07-12 10:33 | Outpatient (REF) | payer OTHER, SELFPAY ==
[2022-07-12 11:21] LABS: MANUAL DIFF FLAG NO
[2022-07-12 11:24] LABS: Basophils Absolute Auto 0.1 X10*3/uL (0.0-0.2); Basophils Percent Auto 0.8 % (0-2); Eosinophils Absolute Auto 0.3 X10*3/uL (0.0-0.4); Eosinophils Percent Auto 4.2 % (0-4); Hematocrit 41.7 % (42.0-52.0); Hemoglobin 14.4 g/dl (14.0-18.0); Imm Gran Abs Auto 0.01 X10*3/uL (0.00-0.03); Imm Gran Pct Auto 0.2 % (0.0-0.4); Lymphocytes Absolute Auto 1.8 X10*3/uL (1.2-4.9); Lymphocytes Percent Auto 29.8 % (20-40); Mean Corpuscular HGB Conc 34.5 g/dl (31.0-36.0); Mean Corpuscular Hemoglobin 30.9 pg (27.0-33.0); Mean Corpuscular Volume 89.5 fL (80.0-98.0); Monocytes Absolute Auto 0.5 X10*3/uL (0.1-1.2); Monocytes Percent Auto 8.2 % (2-11); Neutrophils Absolute Auto 3.4 x10*3/uL (2.0-8.3); Neutrophils Percent Auto 56.8 % (45-73); Platelet Count 215 X10*3/uL (160-400); Red Blood Count 4.66 X10*6/uL (4.60-5.80); Red Cell Distribution Width 12.6 % (11.0-16.0)
[2022-07-12 11:57] LABS: Alanine Aminotransferase 36 U/L (0-40); Albumin Level 4.3 g/dL (3.5-5.0); Alkaline Phosphatase 67 U/L (39-117); Anion Gap 11 (12-20); Aspartate Amino Transferase 31 U/L (5-37); Bilirubin Total 0.7 mg/dL (0.0-1.0); Blood Urea Nitrogen 19 mg/dL (9-16); Calcium 9.5 mg/dL (8.4-10.2); Carbon Dioxide 29 mmol/L (22-29); Chloride 104 mmol/L (96-108); Cholesterol 162 mg/dL; Estimated Glomerular Filt Rate 54; Glucose Fasting 96 mg/dL (60-99); HDL Cholesterol 33 mg/dL; LDL Cholesterol Calculated 87 mg/dl; Potassium 3.9 mmol/L (3.3-5.1); Sodium 140 mmol/L (135-145); Total Protein 6.9 g/dL (6.5-8.0); Triglycerides 212 mg/dL
== END 2022-07-12 10:34 | disposition home or self-care (01) ==
LOC: HO.HMGCLDS 10:33
PROVIDERS: PCP Nurse Practitioner Family; Visit Provider Nurse Practitioner Family
DX: E78.5 Hyperlipidemia, unspecified (principal)
CPT/HCPCS: 36415; 80053; 80061; 85025

== ENCOUNTER 2022-07-14 02:01 | Emergency (ER) | payer OTHER, SELFPAY ==
--- NOTE | 2022-07-14 02:26 | ECG_ITS ---
Test Reason : abdominal pain Blood Pressure : / mmHG Vent. Rate : 088 BPM Atrial Rate : 088 BPM P-R Int : 194 ms QRS Dur : 080 ms QT Int : 366 ms P-R-T Axes : 073 020 059 degrees QTc Int : 442 ms Normal sinus rhythm Normal ECG When compared with ECG of 20-JUL-2021 23:18, No significant change was found Referred By: Eliza Barba Electronically Signed By:Sea Diaz
[2022-07-14 02:29] VITALS: BP 134/89; PULSE 87; RESP 16; TEMP 37; O2SAT 97; BMI 35.6
--- NOTE | 2022-07-14 03:15 | ED.ABDPAIN ---
HPI - Abdominal Pain General Chief Complaint: Abdominal Pain Stated Complaint: abdominal pain Time Seen by Provider: 07/14/22 03:15 Source: patient Mode of arrival: ambulatory Limitations: no limitations History of Present Illness HPI narrative: Patient comes to the emergency room complaining of 1 week of abdominal distension. Patient states that his abdomen does not hurt. Patient reports that he had 1 bowel movement of loose stool yesterday after using MiraLax. Patient denies nausea vomiting, no fever chills, no URI or UTI symptoms . Related Data Home Medications Medication Instructions Recorded Confirmed cetirizine 10 mg tablet (Zyrtec) 10 mg PO DAILY PRN 10/03/20 01/27/22 Previous Rx's Medication Instructions Recorded hydrochlorothiazide 25 mg tablet 25 mg PO QAM 90 days #90 tabs 03/24/22 bupropion HCl 300 mg 24 hr tablet, 300 mg PO QAM #90 tabs 03/31/22 extended release doxepin 10 mg capsule 10 mg PO BEDTIME #30 caps 03/31/22 rosuvastatin 10 mg tablet 10 mg PO DAILY 90 days #90 tabs 04/27/22 losartan 50 mg tablet 50 mg PO BID 90 days #180 tabs 05/14/22 atenolol 50 mg tablet 50 mg PO DAILY #90 tabs 06/16/22 buspirone 5 mg tablet 10 mg PO BID #120 tabs 07/11/22 hyoscyamine sulfate 0.125 mg tablet 0.125 mg PO QID PRN dyspepsia #14 07/14/22 tabs simethicone 180 mg capsule (Gas 180 mg PO TID PRN abdominal 07/14/22 Relief (simethicone)) distention #14 caps Allergies Allergy/AdvReac Type Severity Reaction Status Date / Time Penicillins [PENICILLINS] Allergy Severe NAUSEA & Verified 07/14/22 02:34 VOMITING bee pollen [BEE STINGS] Allergy Unknown UNKNOWN Verified 07/14/22 02:34 penicillamine Allergy Unknown unknown Verified 07/14/22 02:34 Review of Systems Review of Systems Constitutional : No Weight loss, No Fever, No Chills, No Night Sweats, No Fatigue, No Malaise ENT/Mouth : No Hearing loss, No Ear Pain, No Nasal Congestion, No Sinus Pain, No Hoarseness, No sore throat, No Rhinorrhea, No Swallowing Difficulty Eyes: No Eye Pain, No Swelling, No Redness, No Foreign Body, No Discharge, No Vision Changes Cardiovascular : No Chest Pain, No SOB, No Dyspnea on Exertion, No Orthopnea, No Edema, No Palpitations Respiratory : No Cough, No Sputum, No Wheezing, No Smoke Exposure, No Dyspnea Gastrointestinal : No Nausea, No Vomiting, 1 episode of loose stool after using MiraLax, no abdominal pain, complaining of diffuse abdominal distension Genitourinary : no irregular bleeding, No Dysuria, No Urinary Frequency, No Hematuria, No Urinary Incontinence, No Urgency, No Flank Pain, No Urinary Flow Changes, No Hesitancy Musculoskeletal : No joint pain, No Myalgias, No Joint Swelling Skin : No Skin Lesions, No rash Neuro : No Weakness, No Numbness, No Paresthesias, No Loss of Consciousness, No Dizziness, No Headache Psych : No Anxiety/Panic, No Depression, No SI/HI/AH/VH, No Social Issues, Heme/Lymph: No Bruising, No Bleeding,No Lymphadenopathy Endocrine : No Polyuria, No Polydipsia, No Temperature Intolerance [facility] Past Medical History Medical History Anxiety Compression fracture of L2 Generalized anxiety disorder HTN (hypertension) Major depressive disorder, recurrent episode with anxious distress Surgical History Hx of appendectomy Social History Social History Alcohol intake: never Patient Tobacco Use Status: Current someday Tobacco user Tobacco use type: Cigar Smoked in Last 30 Days: No e-Cigarette/Vaping Use: Never Used Second Hand Smoke Exposure: Yes Use of substances other than those prescribed or required for medical reasons: No Advance Directives: No Advance Directives Information Provided: Yes Cognitive needs: No Hearing needs: No Vision needs: No Physical Exam ED Vital Signs: Vital Signs - 24 hr 07/14/22 02:29 07/14/22 04:02 Temperature 98.6 F Pulse Rate 87 80 Respiratory Rate 16 18 Blood Pressure 134/89 130/78 Pulse Oximetry 97 99 Oxygen Delivery Method Room Air Room Air BMI result Body Mass Index 35.6 Const Other: Appearance: Alert. Oriented X3. No acute distress. Well appearing Eyes: Pupils equal, round and reactive to light. ENT: Pharynx normal. Neck: Normal inspection. Neck supple. No lymph nodes noted. No crepitus CVS: Normal heart rate and rhythm. Pulses normal. Normal S1 and S2 Respiratory: No respiratory distress. Breath sounds normal. No Wheezing. No rales Abdomen: Soft and nontender. No rigidity. No distention. Skin: Skin warm and dry. Normal skin color. Normal skin turgor. Extremities: No lower extremity edema. No Lacerations. No Rash Neuro: Oriented X 3. No motor deficit. No sensory deficit. Moving all extremities. No slurred speech. CN 2 through 12 grossly intact Psych: calm, cooperative, normal affect Course Course Course Narrative: Patient does not have any abdominal pain, only bloating. All of patient's labs and KUB pending. I discussed the labs and x-rays with the patient, no acute findings. Patient looks well, patient has no abdominal pain on palpation Patient states that he has an appointment pending with his PCP in 2 days, patient states he will discuss with his PCP getting another colonoscopy, patient is overdue by 1 year Medical Decision Making Lab Data MDM Lab Attestation statement: I reviewed the patient's lab results. Result Diagrams: 07/14/22 03:28 07/14/22 03:28 Labs: Lab Results 07/14/22 07/14/22 07/14/22 Range/Units 03:28 03:28 03:28 WBC 8.9 (4.8-10.8) X10*3/uL RBC 4.94 (4.60-5.80) X10*6/uL Hgb 15.1 (14.0-18.0) g/dl Hct 44.3 (42.0-52.0) % MCV 89.7 (80.0-98.0) fL MCH 30.6 (27.0-33.0) pg MCHC 34.1 (31.0-36.0) g/dl RDW 12.8 (11.0-16.0) % Plt Count 216 (160-400) X10*3/uL MPV 9.0 L (9.4-12.4) fL Immature Gran % (Auto) 0.4 (0.0-0.4) % Neut % (Auto) 60.6 (45-73) % Lymph % (Auto) 26.8 (20-40) % [place] % (Auto) 8.3 (2-11) % Eos % (Auto) 3.2 (0-4) % Baso % (Auto) 0.7 (0-2) % Lymph # (Auto) 2.4 (1.2-4.9) X10*3/uL [place] # (Auto) 0.7 (0.1-1.2) X10*3/uL Eos # (Auto) 0.3 (0.0-0.4) X10*3/uL Baso # (Auto) 0.1 (0.0-0.2) X10*3/uL Abs Immat Gran (auto) 0.04 H (0.00-0.03) X10*3/uL Absolute Neuts (auto) 5.4 (2.0-8.3) x10*3/uL Absolute Nucleated RBC 0.000 (0.0-0.012) X10*3/uL Nucleated RBC % (auto) 0.0 (0.0-0.2) /100WBC Sodium 137 (135-145) mmol/L Potassium 3.6 (3.3-5.1) mmol/L Chloride 102 (96-108) mmol/L Carbon Dioxide 24 (22-29) mmol/L Anion Gap 15 (12-20) BUN 22 H (9-16) mg/dL Creatinine 1.31 (0.5-1.4) mg/dL Estim Creat Clear Calc 84.9 Estimated GFR 59 Random Glucose 110 (60-115) mg/dL Calcium 9.5 (8.4-10.2) mg/dL Total Bilirubin 0.8 (0.0-1.0) mg/dL Direct Bilirubin 0.2 (0.0-0.5) mg/dL AST 31 (5-37) U/L ALT 39 (0-40) U/L Alkaline Phosphatase 65 (39-117) U/L Total Protein 7.3 (6.5-8.0) g/dL Albumin 4.5 (3.5-5.0) g/dL Lipase 19 (8-78) U/L COVID-19 ([facility]) Negative (Negative) COVID-19 Clin Com See Note Radiology Impression Discussion of test interpretation with radiology: I have reviewed the radiologist's reading. Radiologist Impression: FINDINGS: Bowel gas pattern is nonobstructive. Moderate amount of stool is present. Clips are present in the right lower quadrant. Small calcification in the left pelvis is favored to represent a phlebolith. Included lung bases are well-aerated. No acute osseous findings are seen. XR/XR KUB IMPRESSION: Moderate volume of stool. Nonobstructive bowel gas pattern. Discharge Plan Discharge Clinical Impression: Abdominal distension Patient Disposition: Home, Self-Care Instructions: Abdominal Pain (ED) Additional Instructions: Please follow-up with your primary care physician tomorrow. If you have any worsening or new symptoms, please return to the emergency room or call 911 Prescriptions: New hyoscyamine sulfate 0.125 mg tablet 0.125 mg PO QID PRN (Reason: dyspepsia) Qty: 14 0RF simethicone [Gas Relief (simethicone)] 180 mg capsule 180 mg PO TID PRN (Reason: abdominal distention) Qty: 14 0RF No Action hydrochlorothiazide 25 mg tablet 25 mg PO QAM 90 Days Qty: 90 1RF bupropion HCl 300 mg tablet extended release 24 hr 300 mg PO QAM Qty: 90 1RF doxepin 10 mg capsule 10 mg PO BEDTIME Qty: 30 3RF rosuvastatin 10 mg tablet 10 mg PO DAILY 90 Days Qty: 90 0RF losartan 50 mg tablet 50 mg PO BID 90 Days Qty: 180 0RF atenolol 50 mg tablet 50 mg PO DAILY Qty: 90 0RF buspirone 5 mg tablet 10 mg PO BID Qty: 120 4RF cetirizine [Zyrtec] 10 mg tablet 10 mg PO DAILY PRN
[2022-07-14 03:34] LABS: Basophils Absolute Auto 0.1 X10*3/uL (0.0-0.2); Basophils Percent Auto 0.7 % (0-2); Eosinophils Absolute Auto 0.3 X10*3/uL (0.0-0.4); Eosinophils Percent Auto 3.2 % (0-4); Hematocrit 44.3 % (42.0-52.0); Hemoglobin 15.1 g/dl (14.0-18.0); Imm Gran Abs Auto 0.04 X10*3/uL (0.00-0.03); Imm Gran Pct Auto 0.4 % (0.0-0.4); Lymphocytes Absolute Auto 2.4 X10*3/uL (1.2-4.9); Lymphocytes Percent Auto 26.8 % (20-40); MANUAL DIFF FLAG NO; Mean Corpuscular HGB Conc 34.1 g/dl (31.0-36.0); Mean Corpuscular Hemoglobin 30.6 pg (27.0-33.0); Mean Corpuscular Volume 89.7 fL (80.0-98.0); Monocytes Absolute Auto 0.7 X10*3/uL (0.1-1.2); Monocytes Percent Auto 8.3 % (2-11); Neutrophils Absolute Auto 5.4 x10*3/uL (2.0-8.3); Neutrophils Percent Auto 60.6 % (45-73); Platelet Count 216 X10*3/uL (160-400); Red Blood Count 4.94 X10*6/uL (4.60-5.80); Red Cell Distribution Width 12.8 % (11.0-16.0); White Blood Count 8.9 X10*3/uL (4.8-10.8)
[2022-07-14 03:46] LABS: COVID-19 Test Negative (Negative); IDNOW Serial# BCCEAD1C
--- NOTE | 2022-07-14 03:49 | PC.NURSE ---
Pt alert and oriented. No apparent distress. Pt states he feels like he has indigestion and is having issues having a bm, denies n/v/pain. States he had COVID 3 wks ago and thought he may have thrown out his back from coughing so much at that time.
[2022-07-14 03:51] LABS: Alanine Aminotransferase 39 U/L (0-40); Albumin Level 4.5 g/dL (3.5-5.0); Alkaline Phosphatase 65 U/L (39-117); Anion Gap 15 (12-20); Aspartate Amino Transferase 31 U/L (5-37); Bilirubin Direct 0.2 mg/dL (0.0-0.5); Bilirubin Total 0.8 mg/dL (0.0-1.0); Blood Urea Nitrogen 22 mg/dL (9-16); Calcium 9.5 mg/dL (8.4-10.2); Carbon Dioxide 24 mmol/L (22-29); Chloride 102 mmol/L (96-108); Creatinine Clr Calc Pharmacy 84.9; Estimated Glomerular Filt Rate 59; Glucose Random 110 mg/dL (60-115); Lipase 19 U/L (8-78); Potassium 3.6 mmol/L (3.3-5.1); Sodium 137 mmol/L (135-145); Total Protein 7.3 g/dL (6.5-8.0)
[2022-07-14 04:02] VITALS: BP 130/78; PULSE 80; RESP 18; O2SAT 99
--- NOTE | 2022-07-14 05:12 | PC.NURSE ---
Discharge instructions given and explained. Pt ambulates safely and independently, no apparent distress.
== END 2022-07-14 05:13 | disposition home or self-care (01) ==
PROVIDERS: Emergency Provider Emergency Medicine; PCP Nurse Practitioner Family
DX: R14.0 Abdominal distension (gaseous) (principal); Z20.822 Contact with and (suspected) exposure to COVID-19; I10 Essential (primary) hypertension; E78.5 Hyperlipidemia, unspecified; Z79.899 Other long term (current) drug therapy; Z79.02 Long term (current) use of antithrombotics/antiplatelets
CPT/HCPCS: 36415; 74018; 80048; 80076; 83690; 85025; 87635; 93005; 99283; 99285

== ENCOUNTER 2022-07-16 15:52 | Outpatient (REF) | payer OTHER, SELFPAY ==
--- NOTE | ~2022-07-16 | XR_ITS ---
EXAMINATION: XR LUMBOSACRAL SPINE CLINICAL INFORMATION: Low back pain COMPARISON: None TECHNIQUE: Three views of the lumbosacral spine. FINDINGS: There is normal lumbar lordosis. The vertebral heights, alignment are normal. There is loss of L5-S1 disc height. Rest of the disc heights are normal. No visible acute fracture, dislocation or lytic process seen. The soft tissues are normal SI joints are normal. XR/XR lumbar spine 2-3V IMPRESSION: Mild degenerative disc changes L5-S1 disc level. No visible acute fracture, dislocation or lytic process seen.
== END 2022-07-16 15:53 | disposition home or self-care (01) ==
LOC: HO.HMGCX 15:52
PROVIDERS: PCP Nurse Practitioner Family; Visit Provider Nurse Practitioner Family
DX: M54.50 Low back pain, unspecified (principal)
CPT/HCPCS: 72100

== ENCOUNTER 2023-01-05 07:00 | Outpatient (RCR) | payer OTHER, SELFPAY ==
--- NOTE | 2022-08-18 14:47 | MHC.PT.EP ---
[facility] [place] Office [place] Office [place] Office [address] [place] [address] [phone] F: [phone] F: [phone] F: [phone] F: [phone] Physical Therapy Plan of Care Date of Evaluation: Date of Surgery: n/a Diagnosis: lumbar intervertebral disc degeneration Assessment: Patient is a 47 year old male presenting to PT with complaints of pain in his low back. Pt reports onset of pain began originally 10 years ago with worsening over the last 2 months due to originally to compression fx at L2 but most recently insidiously. He presents today with impairments in pain, lumbar ROM, core strength, posture, and hip strength. 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 Clinical presentation today is most consistent with signs and sx associated with chronic low back pain and pt will benefit from skilled PT to address the following problems and impairments noted upon evaluation: pain, lumbar ROM, core strength, posture, and hip strength. These problems limit the patient with the following functional activities: Work, ADLs, bending, lifting, standing, walking. The prescribed treatment plan of care is medically necessary. Co-morbidities of HTN, hx L2 compression fx were identified and taken into considerations of plan of care. Pt was educated on HEP, role of PT, prognosis, POC. Frequency and Duration: The patient will be seen 2 x week x 4 weeks Short Term Goals: Pt will demonstrate ability to perform PPT with good TA recruitment in 2 weeks. Pt will demonstrate improved hip MMT strength by 1/3 grade in 2 weeks for improved lumbopelvic stability. Pt will demonstrate reduction in numbness in 2 weeks for centralization of sx. Manager [employer] Goals: Pt will demonstrate improved Vero score by 10% in 4 weeks for improved functional mobility. Pt will demonstrate improved ability to ambulate/ stand x 1 hr with minimal pain/sx in 4 weeks for improved tolerance to work. Pt will demonstrate ability to bend and lift household items with min to no pain in 4 weeks for improved tolerance to ADLs. Treatment Plan: Modalities to reduce pain, spasms and effusion. Manual therapy to restore motion and function. Therapeutic exercise to improve strength and flexibility. Neuromuscular re-education for posture and balance. Therapeutic activities to return to functional activities of daily living. Electronically signed by: Brandi Thrasher, PT, DPT, ATC Please sign and return to therapist. Thank you for your referral.
--- NOTE | 2023-01-05 08:53 | MHC.PT.DC ---
[facility] [place] Office [place] Office [place] Office [address] [place] [address] [phone] F: [phone] F: [phone] F: [phone] F: [phone] Physical Therapy Discharge Report Diagnosis: lumbar intervertebral disc degeneration Date of Surgery: n/a Date of Evaluation: 08/18/22 Date of Discharge: 01/05/23 Treatments to Date: 8 Cancellations to Date: 0 No Shows to Date: 0 Discharge Status: Improved Function Independent with HEP Discharge Summary: Pt is appropriate for d/c secondary to I with HEP and improved functional mobility. His low back has improved slightly, however he notes L foot pain that is relatively new which affects his low back d/t changes in gait. He is I with wrapping his L foot which he states helps. We reviewed HEP and no further questions at this time. Electronically signed by: Toña Simons PT Please sign and return to therapist. Thank you for your referral.
== END 2023-01-05 08:54 | disposition home or self-care (01) ==
LOC: HO.PTCHIC 07:00
PROVIDERS: Visit Provider Nurse Practitioner Family
DX: M51.36 Other intervertebral disc degeneration, lumbar region (principal)
CPT/HCPCS: 97110; 97161

== ENCOUNTER 2023-01-05 07:55 | Outpatient (REF) | payer OTHER, SELFPAY ==
[2023-01-05 11:10] LABS: MANUAL DIFF FLAG NO
[2023-01-05 11:15] LABS: Appearance Urine Clear; Color Urine Yellow; Glucose Urine UA Negative (Negative); Leukocyte Esterase Urine Negative (Negative); Nitrite Urine Negative (Negative); Specific Gravity - Urine 1.015 (1.005-1.025); Urine Blood Negative (Negative); Urine Ketones Negative (Negative); Urine Protein Negative (Neg-Trace)
[2023-01-05 11:20] LABS: Basophils Absolute Auto 0.1 X10*3/uL (0.0-0.2); Basophils Percent Auto 0.7 % (0-2); Eosinophils Absolute Auto 0.3 X10*3/uL (0.0-0.4); Eosinophils Percent Auto 3.5 % (0-4); Hemoglobin 15.3 g/dl (14.0-18.0); Imm Gran Abs Auto 0.02 X10*3/uL (0.00-0.03); Imm Gran Pct Auto 0.3 % (0.0-0.4); Lymphocytes Absolute Auto 1.9 X10*3/uL (1.2-4.9); Lymphocytes Percent Auto 25.8 % (20-40); Mean Corpuscular Hemoglobin 31.2 pg (27.0-33.0); Mean Corpuscular Volume 91.8 fL (80.0-98.0); Mean Platelet Volume 9.4 fL (9.4-12.4); Monocytes Absolute Auto 0.6 X10*3/uL (0.1-1.2); Monocytes Percent Auto 8.5 % (2-11); Neutrophils Absolute Auto 4.4 x10*3/uL (2.0-8.3); Neutrophils Percent Auto 61.2 % (45-73); Platelet Count 236 X10*3/uL (160-400); Red Cell Distribution Width 12.4 % (11.0-16.0); White Blood Count 7.2 X10*3/uL (4.8-10.8)
[2023-01-05 12:01] LABS: Alanine Aminotransferase 30 U/L (0-40); Albumin Level 4.3 g/dL (3.5-5.0); Alkaline Phosphatase 69 U/L (39-117); Anion Gap 14 (12-20); Aspartate Amino Transferase 30 U/L (5-37); Bilirubin Total 1.3 mg/dL (0.0-1.0); Blood Urea Nitrogen 20 mg/dL (9-16); Calcium 10.1 mg/dL (8.4-10.2); Carbon Dioxide 28 mmol/L (22-29); Chloride 103 mmol/L (96-108); Cholesterol 179 mg/dL; Estimated Glomerular Filt Rate 51; Glucose Fasting 100 mg/dL (60-99); HDL Cholesterol 39 mg/dL; LDL Cholesterol Calculated 91 mg/dl; Potassium 4.3 mmol/L (3.3-5.1); Sodium 141 mmol/L (135-145); Total Protein 7.4 g/dL (6.5-8.0); Triglycerides 249 mg/dL
[2023-01-05 12:08] LABS: TSH reflex Free T4 2.09 uIU/mL (0.32-4.0)
== END 2023-01-05 07:56 | disposition home or self-care (01) ==
LOC: HO.HMGCLDS 07:55
PROVIDERS: PCP Nurse Practitioner Family; Visit Provider Nurse Practitioner Family
DX: F33.9 Major depressive disorder, recurrent, unspecified (principal); E78.5 Hyperlipidemia, unspecified
CPT/HCPCS: 36415; 80053; 80061; 81003; 84443; 85025

== ENCOUNTER 2023-01-10 11:19 | Emergency (ER) | payer OTHER, SELFPAY ==
--- NOTE | 2023-01-10 11:21 | ED_ITS ---
HPI - Back Pain/Injury General Chief Complaint: Back Pain/Injury Stated Complaint: severe back pain Time Seen by Provider: 01/10/23 11:31 History of Present Illness HPI Narrative: patient complains of exacerbation of chronic back pain, he has left-sided back pain radiating down to left foot He denies any muscle weakness he has no loss of sensation is no change to bowel or bladder, no incontinence no dysuria no fever no IV drug use Related Data Home Medications Medication Instructions Recorded Confirmed cetirizine 10 mg tablet (Zyrtec) 10 mg PO DAILY PRN 10/03/20 10/13/22 Previous Rx's Medication Instructions Recorded buspirone 5 mg tablet 10 mg PO BID #120 tabs 07/11/22 simethicone 180 mg capsule (Gas 180 mg PO TID PRN abdominal 07/14/22 Relief (simethicone)) distention #14 caps bupropion HCl 450 mg 24 hr tablet, 450 mg PO QAM #90 tabs 10/13/22 extended release hydrochlorothiazide 25 mg tablet 25 mg PO QAM 90 days #90 tabs 10/30/22 rosuvastatin 10 mg tablet 10 mg PO DAILY 90 days #90 tabs 10/30/22 meloxicam 7.5 mg tablet 7.5 mg PO DAILY 30 days #30 tabs 11/10/22 losartan 50 mg tablet 50 mg PO BID 90 days #180 tabs 11/20/22 atenolol 50 mg tablet 50 mg PO DAILY #90 tabs 12/12/22 doxepin 10 mg capsule 10 mg PO BEDTIME #30 caps 12/12/22 tizanidine 2 mg tablet 2 mg PO BID PRN muscle spasticity 12/23/22 30 days #60 tabs lidocaine 5 % topical patch 1 patch topical DAILY back pain 01/10/23 #30 ea prednisone 20 mg tablet 60 mg PO DAILY 3 days #9 tabs 01/10/23 Allergies Allergy/AdvReac Type Severity Reaction Status Date / Time Penicillins [PENICILLINS] Allergy Severe NAUSEA & Verified 01/10/23 11:25 VOMITING bee pollen [BEE STINGS] Allergy Unknown UNKNOWN Verified 01/10/23 11:25 penicillamine Allergy Unknown unknown Verified 01/10/23 11:25 PMF Past Medical History Source: nursing notes reviewed Medical History Anxiety Compression fracture of L2 Generalized anxiety disorder HTN (hypertension) Major depressive disorder, recurrent episode with anxious distress Surgical History Hx of appendectomy Family History Family History Mother Mental health disorder Social History Social History Alcohol intake: never Patient Tobacco Use Status: Current someday Tobacco user Tobacco use type: Cigar e-Cigarette/Vaping Use: Never Used Second Hand Smoke Exposure: Yes Advance Directives: No Advance Directives Information Provided: No Cognitive needs: No Hearing needs: No Vision needs: No Physical Exam Vital Signs: Vital Signs: Last Vital Signs Temp 97.4 F 01/10/23 11:22 Pulse 79 01/10/23 11:22 Resp 16 01/10/23 11:22 BP 109/80 01/10/23 11:22 Pulse Ox 100 01/10/23 11:22 O2 Del Method Room Air 01/10/23 11:22 BMI result Body Mass Index 38.0 general appearance no distress Head is normocephalic atraumatic Neck is supple Respiratory no distress Abdomen soft nontender The back had left-sided lower lumbar upper gluteal tenderness, there is no rash no redness no warmth to the skin of the area which is normal There is no midline tenderness there is no focal bony tenderness Extremities is full range of motion x4 Neuro motor is 5/5 x4 and sensation is intact and symmetrical in lower ex tremities Course Course Course Narrative: This is an RME: Additional HPI, ROS, PE not included below will be deferred to primary provider. Patient is a 47 year old male presenting for Acute on chronic mid lower back pain. Reports his Meloxicam and tizanidine are not alleviating pain. Denies any recent surgery, precipitating injury, genitourinary symptoms. Reports ongoing saddle numbness, not new, no incontinence. Remote history of compression fracture 10 years ago. Patient with flare up of his chronic back pain in a typical area on the left side radiating to the left leg with no weakness or loss of sensation, no changes to bowel or bladder no neurologic deficit is treated in hopes of controlling pain and patient is discharge He is already using tizanidine muscle relaxer, meloxicam NSAID and Tylenol at home Medications Administered Discontinued Medications Generic Name Dose Route Start Last Admin Trade Name Brenton PRN Reason Stop Dose Admin Acetaminophen 975 mg 01/10/23 11:51 01/10/23 11:56 Acetaminophen 325 Mg Tablet PO 01/10/23 11:52 975 mg ONCE ONE Administration Ketorolac Tromethamine 30 mg 01/10/23 11:51 01/10/23 11:57 Ketorolac Tromethamine 30 Mg/Ml Vial IM 01/10/23 11:52 30 mg ONCE ONE Administration Prednisone 60 mg 01/10/23 11:51 01/10/23 11:56 Prednisone 20 Mg Tablet PO 01/10/23 11:52 60 mg ONCE ONE Administration Discharge Plan Discharge Clinical Impression: Sciatica Patient Disposition: Home, Self-Care Additional Instructions: most flares of back pain return to baseline in a reasonable time frame Follow with primary doctor Return any time for weakness, incontinence, severe pain out of control, any worse condition or any concerns Prescriptions: New lidocaine 5 % adhesive patch,medicated 1 patch topical DAILY Qty: 30 0RF Rx Instructions: leave on most painful area for up to 12 hrs prednisone 20 mg tablet 60 mg PO DAILY 3 Days Qty: 9 0RF No Action buspirone 5 mg tablet 10 mg PO BID Qty: 120 4RF hydrochlorothiazide 25 mg tablet 25 mg PO QAM 90 Days Qty: 90 1RF rosuvastatin 10 mg tablet 10 mg PO DAILY 90 Days Qty: 90 1RF meloxicam 7.5 mg tablet 7.5 mg PO DAILY 30 Days Qty: 30 3RF losartan 50 mg tablet 50 mg PO BID 90 Days Qty: 180 1RF atenolol 50 mg tablet 50 mg PO DAILY Qty: 90 1RF doxepin 10 mg capsule 10 mg PO BEDTIME Qty: 30 3RF tizanidine 2 mg tablet 2 mg PO BID PRN (Reason: muscle spasticity) 30 Days Qty: 60 0RF simethicone [Gas Relief (simethicone)] 180 mg capsule 180 mg PO TID PRN (Reason: abdominal distention) Qty: 14 0RF cetirizine [Zyrtec] 10 mg tablet 10 mg PO DAILY PRN bupropion HCl 450 mg tablet extended release 24 hr 450 mg PO QAM Qty: 90 1RF Interventions: ED Discharge Assessment Last Done: 01/10/23 12:03
[2023-01-10 11:22] VITALS: BP 109/80; PULSE 79; RESP 16; TEMP 36.3; O2SAT 100; BMI 38.0
--- NOTE | 2023-01-10 11:53 | ED_ITS ---
HPI - Back Pain/Injury General Chief Complaint: Back Pain/Injury Stated Complaint: severe back pain Time Seen by Provider: 01/10/23 11:31 History of Present Illness HPI Narrative: patient complains of left-sided back pain radiating to left foot, he has had pain in his back chronically for several years since an accident, it periodically flares up There is no new injury but last night he developed severe pain in the left lower back, there is no numbness or loss of sensation in the feet, there is no muscle weakness, the pain does radiate to the left leg, there is no change to bowel or bladder, there is no fever no IV drug use, no incontinence no dysuria Related Data Home Medications Medication Instructions Recorded Confirmed cetirizine 10 mg tablet (Zyrtec) 10 mg PO DAILY PRN 10/03/20 10/13/22 Previous Rx's Medication Instructions Recorded buspirone 5 mg tablet 10 mg PO BID #120 tabs 07/11/22 simethicone 180 mg capsule (Gas 180 mg PO TID PRN abdominal 07/14/22 Relief (simethicone)) distention #14 caps bupropion HCl 450 mg 24 hr tablet, 450 mg PO QAM #90 tabs 10/13/22 extended release hydrochlorothiazide 25 mg tablet 25 mg PO QAM 90 days #90 tabs 10/30/22 rosuvastatin 10 mg tablet 10 mg PO DAILY 90 days #90 tabs 10/30/22 meloxicam 7.5 mg tablet 7.5 mg PO DAILY 30 days #30 tabs 11/10/22 losartan 50 mg tablet 50 mg PO BID 90 days #180 tabs 11/20/22 atenolol 50 mg tablet 50 mg PO DAILY #90 tabs 12/12/22 doxepin 10 mg capsule 10 mg PO BEDTIME #30 caps 12/12/22 tizanidine 2 mg tablet 2 mg PO BID PRN muscle spasticity 12/23/22 30 days #60 tabs lidocaine 5 % topical patch 1 patch topical DAILY back pain 01/10/23 #30 ea prednisone 20 mg tablet 60 mg PO DAILY 3 days #9 tabs 01/10/23 Allergies Allergy/AdvReac Type Severity Reaction Status Date / Time Penicillins [PENICILLINS] Allergy Severe NAUSEA & Verified 01/10/23 11:25 VOMITING bee pollen [BEE STINGS] Allergy Unknown UNKNOWN Verified 01/10/23 11:25 penicillamine Allergy Unknown unknown Verified 01/10/23 11:25 [facility] Past Medical History Source: nursing notes reviewed Medical History Anxiety Compression fracture of L2 Generalized anxiety disorder HTN (hypertension) Major depressive disorder, recurrent episode with anxious distress Surgical History Hx of appendectomy Family History Family History Mother Mental health disorder Social History Social History Alcohol intake: never Patient Tobacco Use Status: Current someday Tobacco user Tobacco use type: Cigar e-Cigarette/Vaping Use: Never Used Second Hand Smoke Exposure: Yes Advance Directives: No Advance Directives Information Provided: No Cognitive needs: No Hearing needs: No Vision needs: No Physical Exam Vital Signs: Vital Signs: Last Vital Signs Temp 97.4 F 01/10/23 11:22 Pulse 79 01/10/23 11:22 Resp 16 01/10/23 11:22 BP 109/80 01/10/23 11:22 Pulse Ox 100 01/10/23 11:22 O2 Del Method Room Air 01/10/23 11:22 BMI result Body Mass Index 38.0 general appearance no distress but uncomfortable Head is normocephalic atraumatic Neck is supple Respiratory no distress Abdomen soft nontender The back had left lower lumbar and left upper gluteal paraspinal soft tissue t enderness there is no redness warmth or rash, no midline tenderness, no CVA tenderness, skin of the back was normal Extremities full range of motion x4 Neuro motor is 5/5 x4, sensation in distal extremities is intact and symmetrical Course Course Course Narrative: patient with musculoskeletal reproducible low back pain similar to prior episodes having an exacerbation of his chronic back pain He is treated with steroid which may help his radiating pain, he already has an NSAID at home, I advised additional Tylenol and lidocaine patch He did not want any narcotic pain medication and he already has muscle relaxer at home Patient with back pain with no neurologic deficit no change to bowel or bladder is discharged home Discharge Plan Discharge Clinical Impression: Sciatica Patient Disposition: Home, Self-Care Additional Instructions: most flares of back pain return to baseline in a reasonable time frame Follow with primary doctor Return any time for weakness, incontinence, severe pain out of control, any worse condition or any concerns Prescriptions: New lidocaine 5 % adhesive patch,medicated 1 patch topical DAILY Qty: 30 0RF Rx Instructions: leave on most painful area for up to 12 hrs prednisone 20 mg tablet 60 mg PO DAILY 3 Days Qty: 9 0RF No Action buspirone 5 mg tablet 10 mg PO BID Qty: 120 4RF hydrochlorothiazide 25 mg tablet 25 mg PO QAM 90 Days Qty: 90 1RF rosuvastatin 10 mg tablet 10 mg PO DAILY 90 Days Qty: 90 1RF meloxicam 7.5 mg tablet 7.5 mg PO DAILY 30 Days Qty: 30 3RF losartan 50 mg tablet 50 mg PO BID 90 Days Qty: 180 1RF atenolol 50 mg tablet 50 mg PO DAILY Qty: 90 1RF doxepin 10 mg capsule 10 mg PO BEDTIME Qty: 30 3RF tizanidine 2 mg tablet 2 mg PO BID PRN (Reason: muscle spasticity) 30 Days Qty: 60 0RF simethicone [Gas Relief (simethicone)] 180 mg capsule 180 mg PO TID PRN (Reason: abdominal distention) Qty: 14 0RF cetirizine [Zyrtec] 10 mg tablet 10 mg PO DAILY PRN bupropion HCl 450 mg tablet extended release 24 hr 450 mg PO QAM Qty: 90 1RF
[2023-01-10] MEDS: predniSONE 20 MG TABLET 60 MG PO (11:56)
[2023-01-10] MEDS: Acetaminophen 325 MG TABLET 975 MG PO (11:56)
[2023-01-10] MEDS: Ketorolac Tromethamine 30 MG/ML VIAL IM (11:57)
== END 2023-01-10 12:06 | disposition home or self-care (01) ==
PROVIDERS: Emergency Provider Emergency Medicine; PCP Nurse Practitioner Family
DX: M54.42 Lumbago with sciatica, left side (principal); I10 Essential (primary) hypertension; E78.5 Hyperlipidemia, unspecified; F41.1 Generalized anxiety disorder; F17.200 Nicotine dependence, unspecified, uncomplicated; Z79.02 Long term (current) use of antithrombotics/antiplatelets; Z79.899 Other long term (current) drug therapy
CPT/HCPCS: 96372; 99283; 99284; J1885

== ENCOUNTER 2023-01-12 10:41 | Outpatient (REF) | payer OTHER, SELFPAY ==
--- NOTE | ~2023-01-12 | XR_ITS ---
EXAMINATION: XR FOOT, LEFT CLINICAL INFORMATION: Left foot pain COMPARISON: None available. TECHNIQUE: AP, lateral, and oblique views of the left foot. FINDINGS: There is no evidence of acute fracture or dislocation of the left foot. No radiopaque foreign bodies identified. There is a Achilles calcaneal spur present. There appears be some soft tissue edema about the first toe. There appears to be some edematous change also seen about the region of the metatarsal and tarsal bones. XR/XR foot LT min 3V IMPRESSION: No significant bony abnormality of the left foot identified. Achilles calcaneal spur. No radiopaque foreign body. Soft tissue prominence.
== END 2023-01-12 10:42 | disposition home or self-care (01) ==
LOC: HO.HMGCX 10:41
PROVIDERS: PCP Nurse Practitioner Family; Visit Provider Nurse Practitioner Family
DX: M79.672 Pain in left foot (principal)
CPT/HCPCS: 73630

== ENCOUNTER 2023-04-13 11:01 | Outpatient (AMB) | payer OTHER, SELFPAY ==
--- NOTE | 2023-04-13 11:25 | MHC.PC.OV ---
Vital Signs 04/13/23 11:27 Height 5 ft 9 in Weight 255 lb BMI 37.7 BP 130/86 Blood Pressure Location Lt brachial Position Sitting Pulse 72 Pulse Source Pulse Oximeter Pulse Oximetry (%) 97 Oxygen Delivery Method Room Air Intake Visit Reasons: Annual PE/Overdue Allergies Penicillins [PENICILLINS] Allergy (Severe, Verified 04/13/23 11:27) NAUSEA & VOMITING bee pollen [BEE STINGS] Allergy (Unknown, Verified 04/13/23 11:27) UNKNOWN penicillamine Allergy (Unknown, Verified 04/13/23 11:27) unknown Tobacco use date assessed: 01/12/23 Dental Screening Dental Screen Date: 04/13/23 Did you have a dental visit in the last 12 months?: No Did you have a dental problem in the last 6 months where you did not have access to dental care?: No Was dental information given to patient?: Patient has dentist HPI Annual PE/Overdue HPI Details Pt is here for a PE. Will order labs. Pt reports severe tenderness of his left plantar foot. He is seeing podiatry, ? plantar fasciitis. Insoles were recommended, pt will get these, he also bought new shoes. Pt would like a different property utilization officer, will refer. Pt is having difficulty finding a therapist due to his insurance. Will have team speak with pt in office today, denies any SI or HI. . [facility] Medical History Generalized anxiety disorder Major depressive disorder, recurrent episode with anxious distress HTN (hypertension) Compression fracture of L2 Anxiety Surgical History Hx of appendectomy Family History Mother Mental health disorder Social History Housing: House Alcohol intake: never Patient Tobacco Use Status: Current someday Tobacco user Tobacco use type: Cigar e-Cigarette/Vaping Use: Never Used Second Hand Smoke Exposure: Yes Current occupational status: unemployed Cognitive needs: No Hearing needs: No Vision needs: No Questionnaire AUDIT C Alcohol Use Questionnaire (AUDIT-C) 1. How often do you have a drink containing alcohol?: Never 3. How often do you have six or more drinks on one occasion?: Never Total Score: 0 Score Reviewed/Action Taken: No Review of Systems Const Denies chills and Denies fever(s) Eyes Denies blurry vision ENT Denies vertigo, Denies dizziness and Denies sore throat Card Denies chest pain at rest, Denies chest pain with activity, Denies diaphoresis, Denies dyspnea and Denies dyspnea on exertion Resp Denies cough, Denies dyspnea, Denies dyspnea on exertion and Denies wheezing GI Denies abdominal pain, Denies melena, Denies hematochezia, Denies constipation, Denies diarrhea and Denies loose stools Denies hematuria Musc Denies numbness and Denies tingling Skin/Breast Denies lesions Neuro Denies vertigo, Denies dizziness, Denies numbness and Denies tingling Psych Denies anxiety, Denies depression, Denies homicidal ideation, Denies suicidal ideation and Denies other (substance abuse) Aller/Immun Denies wheezing Physical exam (Primary Care) Vital Signs: Last Vital Signs Pulse 72 04/13/23 11:27 BP 130/86 04/13/23 11:27 Pulse Ox 97 04/13/23 11:27 Oxygen Delivery Method Room Air 04/13/23 11:27 BMI result Body Mass Index 37.7 Tobacco/Smoking Status: Tobacco use Status Tobacco use date assessed 01/12/23 04/13/23 11:26 Patient Tobacco Use Status Current someday Tobacco 04/13/23 11:26 Tobacco use type Cigar 04/13/23 11:26 e-Cigarette/Vaping Use Never Used 04/13/23 11:26 Const General: cooperative Nutritional Appearance: obese Orientation/consciousness: patient oriented x3 HENMT Head: Yes normal to inspection, Yes normocephalic and Yes atraumatic Ears: TM's normal bilaterally Eyes General: appearance normal, both eyes and all related structures Alignment and Position: alignment normal and position normal Neck Neck: Yes normal visual inspection and Yes no lymphadenopathy Thyroid: Thyroid normal Resp Effort & Inspection: normal respiratory effort Auscultation: clear to auscultation bilaterally Cardio Rate: regular rate Rhythm: regular rhythm Heart sounds: S1 normal heart sound present, S2 normal heart sound present and no murmurs GI Palpation (GI): Soft to palpation and nontender Auscultation: normal bowel sounds Male General Exam: Yes normal external exam Penis: normal penis Scrotum: scrotum normal, testes descended bilaterally and no inguinal hernias Testes: no testicular mass Skin Rashes: no rashes Neuro General: patient oriented x3, moves all extremities, no focal motor deficits and deep tendon reflexes 2+ bilaterally Romberg Test: Negative Psych Appearance: grossly normal Mental Status: mental status grossly normal Speech and movement: Normal speech and movement present Affect: normal affect Attitude: cooperative Thought process: Normal thought process present Thought content: Normal thought content present Insight: Good insight present (Psych) Judgement: Good judgement present (Psych) Assessment and Plan Assessment & Plan (1) Physical exam: Code(s): Z00.00 - Encounter for general adult medical examination without abnormal findings (2) Left foot pain: Code(s): M79.672 - Pain in left foot (3) Plantar fasciitis of left foot: Code(s): M72.2 - Plantar fascial fibromatosis Plan The patient agreed to the use of a territory sales manager medical for this encounter. Scribed for ALLEGRA Rojas-BC by Ewelina Chauhan territory sales manager medical, on 04/13/2023 at 11:40 EST. Orders: Orders Comprehensive [place]. Panel Fast Today Z00.00 - Encounter for general adult medical examination without abnormal findings UA CC w/rflx Micro + Cult Today Z00.00 - Encounter for general adult medical examination without abnormal findings Lipid Panel Today Z00.00 - Encounter for general adult medical examination without abnormal findings Complete Blood Count Auto Diff Today Z00.00 - Encounter for general adult medical examination without abnormal findings TSH reflex Free T4 Today Z00.00 - Encounter for general adult medical examination without abnormal findings Referrals Podiatry Referral M72.2 - Plantar fascial fibromatosis, M79.672 - Pain in left foot Coding Level of Care Code Est Pt Prev Care 40-64y(05834) Diagnoses Physical exam Z00.00 Left foot pain M79.672 Plantar fasciitis of left foot M72.2
[2023-04-13 11:27] VITALS: BP 130/86; PULSE 72; O2SAT 97; BMI 37.7
--- NOTE | 2023-04-13 13:15 | MHC.PC.OV ---
Vital Signs 04/13/23 11:27 Height 5 ft 9 in Weight 255 lb BMI 37.7 BP 130/86 Blood Pressure Location Lt brachial Position Sitting Pulse 72 Pulse Source Pulse Oximeter Pulse Oximetry (%) 97 Oxygen Delivery Method Room Air Intake Visit Reasons: Annual PE/Overdue Allergies Penicillins [PENICILLINS] Allergy (Severe, Verified 04/13/23 11:27) NAUSEA & VOMITING bee pollen [BEE STINGS] Allergy (Unknown, Verified 04/13/23 11:27) UNKNOWN penicillamine Allergy (Unknown, Verified 04/13/23 11:27) unknown Tobacco use date assessed: 01/12/23 [facility] Medical History Generalized anxiety disorder Major depressive disorder, recurrent episode with anxious distress HTN (hypertension) Compression fracture of L2 Anxiety Surgical History Hx of appendectomy Family History Mother Mental health disorder Social History Housing: House Alcohol intake: never Patient Tobacco Use Status: Current someday Tobacco user Tobacco use type: Cigar e-Cigarette/Vaping Use: Never Used Second Hand Smoke Exposure: Yes Current occupational status: unemployed Cognitive needs: No Hearing needs: No Vision needs: No Questionnaire PHQ-9 Over the last 2 weeks, how often have you been bothered by any of the following problems? 1. Little interest or pleasure in doing things: several days 2. Feeling down, depressed, or hopeless: several days 3. Trouble falling or staying asleep, or sleeping too much: more than half the days 4. Feeling tired or having little energy: several days 5. Poor appetite or overeating: several days 6. Feeling bad about yourself - or that you are a failure or have let yourself or your family down: more than half the days 7. Trouble concentrating on things, such as reading the newspaper or watching television: not at all 8. Moving or speaking so slowly that other people could have noticed. Or the opposite - being so fidgety or restless that you have been moving around a lot more than usual: not at all 9. Thoughts that you would be better off or of hurting yourself in some way: not at all Total score: 8 Depression Screening Interpretation: Negative 13769 - PHQ-9 Billing: Yes Source: Developed by Drs. David Dow, Shasha Morel, Ramon Willis and colleagues, with an educational shane from [employer]. Thrive Questionnaire Date Thrive assessed: 04/13/23 I am a: Patient What is your living situation today?: I have a steady place to live Within the past 12 months, did the food you bought not last and you didn't have the money to get more?: Never true Within the past 12 months, did you worry whether your food would run out before you got money to buy more?: Never true Do you have trouble paying for medicines?: No Do you have trouble getting transportation to medical appointments?: No Do you have trouble paying your heating and electricity bill?: No Do you have trouble taking care of your child, family member or friend?: No Do you have trouble with day-to-day activities such as bathing, preparing meals, shopping, managing finances, etc.?: No Are you currently unemployed and looking for a job?: No Are you interested in more education?: Yes AUDIT C Alcohol Use Questionnaire (AUDIT-C) 1. How often do you have a drink containing alcohol?: Never 3. How often do you have six or more drinks on one occasion?: Never Total Score: 0 Score Reviewed/Action Taken: No AJH-7 AMB Questionnaire JAH-7 Date JAH - 7 assessed: 04/13/23 Feeling nervous, anxious, or on edge: 2 = More than half the days Not being able to stop or control worryin = More than half the days Worrying too much about different things: 2 = More than half the days Trouble relaxin = Nearly every day Being so restless that it is hard to sit still: 1 = Several days Becoming easily annoyed or irritable: 2 = More than half the days Feeling afraid as if something awful might happen: 2 = More than half the days Total JAH-7 score (0-4 normal; 5-9 mild; 10-14 moderate; 15-21 severe): 14 Source: Developed by Drs. David oDw, Shasha Morel, Ramon Willis and colleagues, with an educational shane from [employer]. JAH-7 Assessment Billing JAH-7 Assessment Tool: JAH-7 Assessment [id number] Physical exam (Primary Care) Vital Signs: Last Vital Signs Pulse 72 04/13/23 11:27 BP 130/86 04/13/23 11:27 Pulse Ox 97 04/13/23 11:27 Oxygen Delivery Method Room Air 04/13/23 11:27 BMI result Body Mass Index 37.7 Tobacco/Smoking Status: Tobacco use Status Tobacco use date assessed 01/12/23 04/13/23 13:16 Patient Tobacco Use Status Current someday Tobacco 04/13/23 13:16 Tobacco use type Cigar 04/13/23 13:16 e-Cigarette/Vaping Use Never Used 04/13/23 13:16 PHQ-9: PHQ-9 Score PHQ-9: Total score 8 04/13/23 13:16 Depression Screening Interpretation: Negative Thrive Assessment: Date of Thrive Assessment Date Thrive assessed 04/13/23 04/13/23 13:16 Assessment and Plan Assessment & Plan (1) Physical exam: Code(s): Z00.00 - Encounter for general adult medical examination without abnormal findings (2) Left foot pain: Code(s): M79.672 - Pain in left foot (3) Plantar fasciitis of left foot: Code(s): M72.2 - Plantar fascial fibromatosis Orders: Orders Comprehensive [place]. Panel Fast Today Z00.00 - Encounter for general adult medical examination without abnormal findings UA CC w/rflx Micro + Cult Today Z00.00 - Encounter for general adult medical examination without abnormal findings Lipid Panel Today Z00.00 - Encounter for general adult medical examination without abnormal findings Complete Blood Count Auto Diff Today Z00.00 - Encounter for general adult medical examination without abnormal findings TSH reflex Free T4 Today Z00.00 - Encounter for general adult medical examination without abnormal findings Referrals Podiatry Referral M72.2 - Plantar fascial fibromatosis, M79.672 - Pain in left foot Coding Diagnoses Physical exam Z00.00 Left foot pain M79.672 Plantar fasciitis of left foot M72.2 Additional Codes JAH-7 Assessment Billing - JAH-7 Assessment Tool: JAH-7 Assessment [id number] ([id number])
== END 2023-04-13 13:41 | disposition home or self-care (01) ==
PROVIDERS: PCP Nurse Practitioner Family; Visit Provider Nurse Practitioner Family
DX: Z00.00 Encounter for general adult medical examination without abnormal findings (principal); M79.672 Pain in left foot; M72.2 Plantar fascial fibromatosis
CPT/HCPCS: 99396

== ENCOUNTER 2023-07-10 10:33 | Outpatient (REF) | payer OTHER, SELFPAY ==
[2023-07-10 13:20] LABS: MANUAL DIFF FLAG NO
[2023-07-10 13:34] LABS: Basophils Absolute Auto 0.1 X10*3/uL (0.0-0.2); Eosinophils Absolute Auto 0.3 X10*3/uL (0.0-0.4); Eosinophils Percent Auto 3.2 % (0-4); Hematocrit 44.8 % (42.0-52.0); Hemoglobin 15.1 g/dl (14.0-18.0); Imm Gran Abs Auto 0.03 X10*3/uL (0.00-0.03); Imm Gran Pct Auto 0.4 % (0.0-0.4); Lymphocytes Absolute Auto 2.2 X10*3/uL (1.2-4.9); Lymphocytes Percent Auto 27.3 % (20-40); Mean Corpuscular HGB Conc 33.7 g/dl (31.0-36.0); Mean Corpuscular Hemoglobin 30.4 pg (27.0-33.0); Mean Corpuscular Volume 90.3 fL (80.0-98.0); Monocytes Absolute Auto 0.7 X10*3/uL (0.1-1.2); Monocytes Percent Auto 8.9 % (2-11); Neutrophils Absolute Auto 4.8 x10*3/uL (2.0-8.3); Neutrophils Percent Auto 59.2 % (45-73); Platelet Count 240 X10*3/uL (160-400); Red Blood Count 4.96 X10*6/uL (4.60-5.80); Red Cell Distribution Width 12.8 % (11.0-16.0); White Blood Count 8.1 X10*3/uL (4.8-10.8)
[2023-07-10 13:43] LABS: Appearance Urine Clear; Color Urine Yellow; Glucose Urine UA Negative (Negative); Leukocyte Esterase Urine Negative (Negative); Nitrite Urine Negative (Negative); PH 5.5 (5.0-9.0); Urine Blood Negative (Negative); Urine Ketones Negative (Negative); Urine Protein Negative (Neg-Trace)
[2023-07-10 14:05] LABS: Alanine Aminotransferase 29 U/L (0-40); Albumin Level 4.1 g/dL (3.5-5.0); Alkaline Phosphatase 75 U/L (39-117); Anion Gap 14 (12-20); Aspartate Amino Transferase 26 U/L (5-37); Bilirubin Total 0.7 mg/dL (0.0-1.0); Blood Urea Nitrogen 18 mg/dL (9-16); Calcium 9.4 mg/dL (8.4-10.2); Carbon Dioxide 26 mmol/L (22-29); Chloride 103 mmol/L (96-108); Cholesterol 146 mg/dL (<200); Estimated Glomerular Filt Rate 55; Glucose Fasting 98 mg/dL (60-99); HDL Cholesterol 43 mg/dL (>40); LDL Cholesterol Calculated 76 mg/dL (<100); Sodium 139 mmol/L (135-145); Total Protein 7.1 g/dL (6.5-8.0); Triglycerides 139 mg/dL (<150)
[2023-07-10 14:20] LABS: TSH reflex Free T4 1.57 uIU/mL (0.32-4.0)
== END 2023-07-10 10:34 | disposition home or self-care (01) ==
LOC: HO.HMGCLDS 10:33
PROVIDERS: PCP Nurse Practitioner Family; Visit Provider Nurse Practitioner Family
DX: Z00.00 Encounter for general adult medical examination without abnormal findings (principal); Z13.220 Encounter for screening for lipoid disorders; Z13.29 Encounter for screening for other suspected endocrine disorder
CPT/HCPCS: 36415; 80053; 80061; 81003; 84443; 85025

== ENCOUNTER 2023-07-16 12:53 | Outpatient (AMB) | payer OTHER, SELFPAY ==
--- NOTE | 2023-07-16 13:12 | MHC.PC.OV ---
Vital Signs 07/16/23 13:13 07/16/23 14:12 Weight 254 lb BP 124/98 H 136/98 H Blood Pressure Location Lt brachial Rt brachial Position Sitting Sitting Pulse 82 Pulse Source Pulse Oximeter Pulse Oximetry (%) 95 Oxygen Delivery Method Room Air Intake Visit Reasons: 3 Month follow up Intake Note: Patient here to follow up on left foot and back pain. Allergies Penicillins [PENICILLINS] Allergy (Severe, Verified 07/16/23 13:14) NAUSEA & VOMITING bee pollen [BEE STINGS] Allergy (Unknown, Verified 07/16/23 13:14) UNKNOWN penicillamine Allergy (Unknown, Verified 07/16/23 13:14) unknown Tobacco use date assessed: 01/12/23 HPI 3 Month follow up HPI Details anxiety/depression: New job recently, pt reports doing well overall. denies any SI or HI. Pt is also looking at finding a new hobby. I did recommend pt getting a therapist. Pt's new job starts soon, with new insurance. HTN: pt will take his BP at home and send me values via the portal in the near future. denies any CP, SWENSON, dizziness, SOB PFSH Medical History Generalized anxiety disorder Major depressive disorder, recurrent episode with anxious distress HTN (hypertension) Compression fracture of L2 Anxiety Surgical History Hx of appendectomy Family History Mother Mental health disorder Social History Housing: House Alcohol intake: never Patient Tobacco Use Status: Current someday Tobacco user Tobacco use type: Cigar e-Cigarette/Vaping Use: Never Used Second Hand Smoke Exposure: Yes Current occupational status: unemployed Cognitive needs: No Hearing needs: No Vision needs: No Physical exam (Primary Care) Vital Signs: Last Vital Signs Pulse 82 07/16/23 13:13 BP 136/98 H 07/16/23 14:12 Pulse Ox 95 07/16/23 13:13 Oxygen Delivery Method Room Air 07/16/23 13:13 Tobacco/Smoking Status: Tobacco use Status Tobacco use date assessed 01/12/23 07/16/23 13:13 Patient Tobacco Use Status Current someday Tobacco 07/16/23 13:13 Tobacco use type Cigar 07/16/23 13:13 e-Cigarette/Vaping Use Never Used 07/16/23 13:13 Resp Effort & Inspection: normal respiratory effort Auscultation: clear to auscultation bilaterally Cardio Rate: regular rate Rhythm: regular rhythm Heart sounds: S1 normal heart sound present, S2 normal heart sound present and no murmurs Psych Appearance: grossly normal Mental Status: mental status grossly normal Speech and movement: Normal speech and movement present Affect: normal affect Attitude: cooperative Thought process: Normal thought process present Thought content: Normal thought content present Insight: Good insight present (Psych) Judgement: Good judgement present (Psych) Assessment and Plan Assessment & Plan (1) Anxiety: Code(s): F41.9 - Anxiety disorder, unspecified Plan: getting better, recommend a therapist and possible psychiatrist (2) HTN (hypertension): Code(s): I10 - Essential (primary) hypertension Qualifiers: Hypertension type: primary hypertension Qualified Code(s): I10 - Essential (primary) hypertension Plan: keep track Coding Level of Care Code Est Pt Level 3 (37655) Diagnoses Anxiety F41.9 HTN (hypertension) I10 Hypertension type: primary hypertension
[2023-07-16 13:13] VITALS: BP 124/98; PULSE 82; O2SAT 95
[2023-07-16 14:12] VITALS: BP 136/98
== END 2023-07-16 14:15 | disposition home or self-care (01) ==
PROVIDERS: PCP Nurse Practitioner Family; Visit Provider Nurse Practitioner Family
DX: F41.9 Anxiety disorder, unspecified (principal); I10 Essential (primary) hypertension
CPT/HCPCS: 99213

== ENCOUNTER 2023-10-21 08:31 | Outpatient (AMB) | payer OTHER, SELFPAY ==
--- NOTE | 2023-10-21 08:39 | A.OFFPC_ITS ---
Vital Signs 10/21/23 08:42 Weight 249 lb BP 124/96 H Blood Pressure Location Rt brachial Position Sitting Pulse 79 Pulse Source Pulse Oximeter Pulse Oximetry (%) 98 Oxygen Delivery Method Room Air Intake Visit Reasons: 3 Month follow up Intake Note: Patient here for anxiety f/u and to discuss Bupropion denial Allergies Penicillins [PENICILLINS] Allergy (Severe, Verified 10/21/23 08:46) NAUSEA & VOMITING bee pollen [BEE STINGS] Allergy (Unknown, Verified 10/21/23 08:46) UNKNOWN penicillamine Allergy (Unknown, Verified 10/21/23 08:46) unknown Medication List - Last Reconciled 10/21/23 by Buck Ling, BEAN [employer]- atenolol 50 mg PO DAILY bupropion HCl 450 mg PO QAM buspirone 10 mg (2 x 5 mg) PO BID cetirizine (Zyrtec) 10 mg PO DAILY PRN doxepin 10 mg PO BEDTIME hydrochlorothiazide 25 mg PO QAM 90 days lidocaine 5% 1 patch topical DAILY losartan 50 mg PO BID 90 days meloxicam 7.5 mg PO DAILY 30 days rosuvastatin 10 mg PO DAILY 90 days simethicone (Gas Relief (simethicone)) 180 mg PO TID PRN tizanidine 2 mg PO BID PRN 30 days Tobacco use date assessed: 10/21/23 Dental Screening Dental Screen Date: 10/21/23 Did you have a dental visit in the last 12 months?: No Did you have a dental problem in the last 6 months where you did not have access to dental care?: No Was dental information given to patient?: Patient has dentist HPI 3 Month follow up HPI Details HTN: Blood pressure is managed with atenolol 50mg, hydrochlorothiazide 25mg, and losartan 50mg bid. Pt reports that his blood pressure at home is in the 120s/80s. Denies chest pain, shortness of breath, headache, dizziness, and blurred vision. Anxiety and depression: Pt has tried multiple psych meds in the past, with no relief. His bupropion HCL 450mg ER is working great for this pt. Highly recommended that pt stays on this med. Pt denies any SI or HI. Pt is currently looking for a psychiatrist and therapist. [facility] Medical History Generalized anxiety disorder Major depressive disorder, recurrent episode with anxious distress HTN (hypertension) Compression fracture of L2 Anxiety Surgical History Hx of appendectomy Family History Mother Mental health disorder Social History Housing: House Alcohol intake: never Patient Tobacco Use Status: Current someday Tobacco user Tobacco use type: Cigar e-Cigarette/Vaping Use: Never Used Second Hand Smoke Exposure: Yes Current occupational status: unemployed Cognitive needs: No Hearing needs: No Vision needs: No Questionnaire PHQ-9 Over the last 2 weeks, how often have you been bothered by any of the following problems? 1. Little interest or pleasure in doing things: several days 2. Feeling down, depressed, or hopeless: not at all 3. Trouble falling or staying asleep, or sleeping too much: several days 4. Feeling tired or having little energy: several days 5. Poor appetite or overeating: several days 6. Feeling bad about yourself - or that you are a failure or have let yourself or your family down: not at all 7. Trouble concentrating on things, such as reading the newspaper or watching television: not at all 8. Moving or speaking so slowly that other people could have noticed. Or the opposite - being so fidgety or restless that you have been moving around a lot more than usual: not at all 9. Thoughts that you would be better off or of hurting yourself in some way: not at all Total score: 4 Depression Screening Interpretation: Negative Depression Screening Done: Yes 64455 - PHQ-9 Billing: Yes Source: Developed by Drs. David Dow, Shasha Morel, Ramon Willis and colleagues, with an educational shane from [employer]. Thrive Questionnaire Date Thrive assessed: 10/21/23 I am a: Patient What is your living situation today?: I have a steady place to live Within the past 12 months, did the food you bought not last and you didn't have the money to get more?: Never true Within the past 12 months, did you worry whether your food would run out before you got money to buy more?: Never true Do you have trouble paying for medicines?: No Do you have trouble getting transportation to medical appointments?: No Do you have trouble paying your heating and electricity bill?: No Do you have trouble taking care of your child, family member or friend?: No Do you have trouble with day-to-day activities such as bathing, preparing meals, shopping, managing finances, etc.?: No Are you currently unemployed and looking for a job?: No Are you interested in more education?: No Currently or been in a relationship where the following occur: I choose not to answer this question THRIVE Score: 0 AUDIT C Alcohol Use Questionnaire (AUDIT-C) 1. How often do you have a drink containing alcohol?: Never 3. How often do you have six or more drinks on one occasion?: Never Total Score: 0 Score Reviewed/Action Taken: No JAH-7 AMB Questionnaire JAH-7 Date JAH - 7 assessed: 10/21/23 Feeling nervous, anxious, or on edge: 1 = Several days Not being able to stop or control worryin = Several days Worrying too much about different things: 1 = Several days Trouble relaxin = More than half the days Being so restless that it is hard to sit still: 0 = Not at all Becoming easily annoyed or irritable: 0 = Not at all Feeling afraid as if something awful might happen: 0 = Not at all Total JAH-7 score (0-4 normal; 5-9 mild; 10-14 moderate; 15-21 severe): 5 Source: Developed by Drs. David Dow, Shasha Morel, Ramon Willis and colleagues, with an educational shane from [employer]. JAH-7 Assessment Billing JAH-7 Assessment Tool: JHA-7 Assessment 55513 Review of Systems Const Reports as per HPI Physical exam (Primary Care) Vital Signs: Last Vital Signs Pulse 79 10/21/23 08:42 BP 124/96 H 10/21/23 08:42 Pulse Ox 98 10/21/23 08:42 Oxygen Delivery Method Room Air 10/21/23 08:42 Tobacco/Smoking Status: Tobacco use Status Tobacco use date assessed 10/21/23 10/21/23 08:48 Patient Tobacco Use Status Current someday Tobacco 10/21/23 08:41 Tobacco use type Cigar 10/21/23 08:41 e-Cigarette/Vaping Use Never Used 10/21/23 08:41 PHQ-9: PHQ-9 Score PHQ-9: Total score 4 10/21/23 12:42 Depression Screening Interpretation: Negative Thrive Assessment: Date of Thrive Assessment Date Thrive assessed 10/21/23 10/21/23 09:03 Currently or been in a relationship where the following occur: I choose not to answer this question Const General: cooperative Orientation/consciousness: patient oriented x3 Resp Effort & Inspection: normal respiratory effort Auscultation: clear to auscultation bilaterally Cardio Rate: regular rate Rhythm: regular rhythm Heart sounds: S1 normal heart sound present and S2 normal heart sound present Neuro General: patient oriented x3 Psych Appearance: grossly normal Mental Status: mental status grossly normal Speech and movement: Normal speech and movement present Affect: normal affect Attitude: cooperative Thought process: Normal thought process present Thought content: Normal thought content present Insight: Good insight present (Psych) Judgement: Good judgement present (Psych) Assessment and Plan Assessment & Plan (1) Screening for colon cancer: Code(s): Z12.11 - Encounter for screening for malignant neoplasm of colon (2) HTN (hypertension): Code(s): I10 - Essential (primary) hypertension Qualifiers: Hypertension type: primary hypertension Qualified Code(s): I10 - Essential (primary) hypertension Plan: BPs at home are much more stable (3) Generalized anxiety disorder: Code(s): F41.1 - Generalized anxiety disorder (4) Major depressive disorder, recurrent episode with anxious distress: Code(s): F33.9 - Major depressive disorder, recurrent, unspecified Plan: will cont buproprion 450 Plan The patient agreed to the use of a medical cash poster for this encounter. Scribed for CAM Rojas by Ewelina Chauhan medical cash poster, on 10/21/2023 at 09:10 EST. Orders: Orders UA CC w/rflx Micro + Cult Today I10 - Essential (primary) hypertension Lipid Panel Today I10 - Essential (primary) hypertension Complete Blood Count Auto Diff Today I10 - Essential (primary) hypertension Comprehensive Spencer. Panel Fast Today I10 - Essential (primary) hypertension TSH reflex Free T4 Today I10 - Essential (primary) hypertension Referrals Gastroenterology Referral Z12.11 - Encounter for screening for malignant neoplasm of colon Medications: Refilled bupropion HCl 450 mg PO QAM 90 tabs 1RF Coding Level of Care Code Est Pt Level 3 (33311) Diagnoses Screening for colon cancer Z12.11 HTN (hypertension) I10 Hypertension type: primary hypertension Generalized anxiety disorder F41.1 Major depressive disorder, recurrent episode with anxious distress F33.9 Additional Codes JAH-7 Assessment Billing - JAH-7 Assessment Tool: JAH-7 Assessment 24694 ([id number])
[2023-10-21 08:42] VITALS: BP 124/96; PULSE 79; O2SAT 98
== END 2023-10-21 09:24 | disposition home or self-care (01) ==
PROVIDERS: PCP Nurse Practitioner Family; Visit Provider Nurse Practitioner Family
DX: I10 Essential (primary) hypertension (principal); F33.9 Major depressive disorder, recurrent, unspecified; Z12.11 Encounter for screening for malignant neoplasm of colon; F41.1 Generalized anxiety disorder
CPT/HCPCS: 99213

== ENCOUNTER 2024-04-19 08:42 | Outpatient (AMB) | payer OTHER, SELFPAY ==
--- NOTE | 2024-04-19 08:46 | MHC.PC.OV ---
Vital Signs 04/19/24 08:47 Height 5 ft 9 in Weight 256 lb BMI 37.8 BP 120/84 Blood Pressure Location Rt brachial Position Sitting Pulse 75 Pulse Source Pulse Oximeter Pulse Oximetry (%) 97 Intake Visit Reasons: 6m F/U Intake Note: pt is here for 6 month follow up Transportation Agent Required: No Accompanied by: Self / Same As Patient Allergies Penicillins [PENICILLINS] Allergy (Severe, Verified 04/19/24 08:47) NAUSEA & VOMITING bee pollen [BEE STINGS] Allergy (Unknown, Verified 04/19/24 08:47) UNKNOWN penicillamine Allergy (Unknown, Verified 04/19/24 08:47) unknown Medication List - Last Reconciled 04/19/24 by CAM Adam atenolol 50 mg PO DAILY bupropion HCl XL 450 mg PO QAM buspirone 10 mg (2 x 5 mg) PO BID cetirizine (Zyrtec) 10 mg PO DAILY PRN doxepin 10 mg PO BEDTIME hydrochlorothiazide 25 mg PO QAM 90 days lidocaine 5% 1 patch topical DAILY losartan 50 mg PO BID 90 days meloxicam 7.5 mg PO DAILY 30 days rosuvastatin 10 mg PO DAILY 90 days simethicone (Gas Relief (simethicone)) 180 mg PO TID PRN tizanidine 2 mg PO BID PRN 30 days Tobacco use date assessed: 10/21/23 Dental Screening Dental Screen Date: 10/21/23 HPI 6m F/U HPI Details HTN: Blood pressure is stable, managed with atenolol 50mg, hydrochlorothiazide 25mg, and losartan 50mg. Pt reports that he has been under less stress lately, but reports his job's staff is much more supportive than previous experiences. Denies chest pain, shortness of breath, headache, dizziness, and blurred vision. [facility] Medical History Generalized anxiety disorder Major depressive disorder, recurrent episode with anxious distress HTN (hypertension) Compression fracture of L2 Anxiety Surgical History Hx of appendectomy Family History Mother Mental health disorder Social History Housing: House Alcohol intake: never Patient Tobacco Use Status: Current someday Tobacco user Tobacco use type: Cigar e-Cigarette/Vaping Use: Never Used Second Hand Smoke Exposure: Yes Current occupational status: unemployed Cognitive needs: No Hearing needs: No Vision needs: No Questionnaire Thrive Questionnaire Date Thrive assessed: 10/21/23 JAH-7 AMB Questionnaire JAH-7 Date JAH - 7 assessed: 10/21/23 Source: Developed by Drs. David Dow, Shasha Morel, Ramon Willis and colleagues, with an educational shane from [employer]. Review of Systems Const Reports as per HPI Physical exam (Primary Care) Vital Signs: Last Vital Signs Pulse 75 04/19/24 08:47 BP 120/84 04/19/24 08:47 Pulse Ox 97 04/19/24 08:47 BMI result Body Mass Index 37.8 Tobacco/Smoking Status: Tobacco use Status Tobacco use date assessed 10/21/23 04/19/24 08:49 Patient Tobacco Use Status Current someday Tobacco 04/19/24 08:49 Tobacco use type Cigar 04/19/24 08:49 e-Cigarette/Vaping Use Never Used 04/19/24 08:49 Thrive Assessment: Date of Thrive Assessment Date Thrive assessed 10/21/23 04/19/24 08:49 Const General: cooperative Nutritional Appearance: obese Orientation/consciousness: patient oriented x3 Resp Effort & Inspection: normal respiratory effort Auscultation: clear to auscultation bilaterally Cardio Rate: regular rate Rhythm: regular rhythm Heart sounds: S1 normal heart sound present, S2 normal heart sound present and no murmurs Neuro General: patient oriented x3 Extrem Right lower extremity: no edema Left lower extremity: no edema Psych Appearance: grossly normal Mental Status: mental status grossly normal Speech and movement: Normal speech and movement present Affect: normal affect Attitude: cooperative Thought process: Normal thought process present Thought content: Normal thought content present Insight: Good insight present (Psych) Judgement: Good judgement present (Psych) Coding Level of Care Code Est Pt Level 3 (29488) Diagnoses HTN (hypertension) I10 Hypertension type: primary hypertension
[2024-04-19 08:47] VITALS: BP 120/84; PULSE 75; O2SAT 97; BMI 37.8
== END 2024-04-19 09:30 | disposition home or self-care (01) ==
LOC: HO.HMCC 08:42
PROVIDERS: PCP Nurse Practitioner Family; Visit Provider Nurse Practitioner Family
DX: I10 Essential (primary) hypertension (principal)

== ENCOUNTER → 2024-04-19 08:42 | Outpatient (BNVA) | payer OTHER, SELFPAY | PROVIDERS: PCP Nurse Practitioner Family; Visit Provider Nurse Practitioner Family ==

== ENCOUNTER 2024-10-22 10:00 | Outpatient (REF) | payer OTHER, SELFPAY ==
[2024-10-22 11:42] LABS: Appearance Urine Clear; Color Urine Yellow; Glucose Urine UA Negative (Negative); Leukocyte Esterase Urine Negative (Negative); Nitrite Urine Negative (Negative); PH 5.5 (5.0-9.0); Urine Blood Negative (Negative); Urine Ketones Negative (Negative); Urine Protein Negative (Neg-Trace)
[2024-10-22 11:46] LABS: MANUAL DIFF FLAG NO
[2024-10-22 12:04] LABS: Basophils Percent Auto 0.6 % (0-2); Eosinophils Absolute Auto 0.2 X10*3/uL (0.0-0.4); Eosinophils Percent Auto 2.6 % (0-4); Hematocrit 43.4 % (42.0-52.0); Hemoglobin 14.7 g/dl (14.0-18.0); Imm Gran Abs Auto 0.02 X10*3/uL (0.00-0.03); Imm Gran Pct Auto 0.3 % (0.0-0.4); Lymphocytes Absolute Auto 1.8 X10*3/uL (1.2-4.9); Lymphocytes Percent Auto 25.2 % (20-40); Mean Corpuscular HGB Conc 33.9 g/dl (31.0-36.0); Mean Corpuscular Hemoglobin 30.9 pg (27.0-33.0); Mean Corpuscular Volume 91.4 fL (80.0-98.0); Mean Platelet Volume 9.2 fL (9.4-12.4); Monocytes Absolute Auto 0.6 X10*3/uL (0.1-1.2); Monocytes Percent Auto 8.9 % (2-11); Neutrophils Absolute Auto 4.3 x10*3/uL (2.0-8.3); Neutrophils Percent Auto 62.4 % (45-73); Platelet Count 226 X10*3/uL (160-400); Red Blood Count 4.75 X10*6/uL (4.60-5.80); Red Cell Distribution Width 12.5 % (11.0-16.0); White Blood Count 6.9 X10*3/uL (4.8-10.8)
[2024-10-22 12:30] LABS: Alanine Aminotransferase 41 U/L (0-40); Albumin Level 4.2 g/dL (3.5-5.0); Alkaline Phosphatase 66 U/L (39-117); Anion Gap 11 (12-20); Aspartate Amino Transferase 41 U/L (5-37); Bilirubin Total 0.8 mg/dL (0.0-1.0); Blood Urea Nitrogen 22 mg/dL (9-16); Calcium 9.5 mg/dL (8.4-10.2); Carbon Dioxide 27 mmol/L (22-29); Chloride 107 mmol/L (96-108); Cholesterol 156 mg/dL (<200); Estimated Glomerular Filt Rate > 60; Glucose Fasting 95 mg/dL (60-99); HDL Cholesterol 40 mg/dL (>40); LDL Cholesterol Calculated 88 mg/dL (<100); Potassium 3.7 mmol/L (3.3-5.1); Sodium 141 mmol/L (135-145); Total Protein 6.9 g/dL (6.5-8.0); Triglycerides 142 mg/dL (<150)
[2024-10-22 12:38] LABS: TSH reflex Free T4 1.01 uIU/mL (0.32-4.0)
[2024-10-22 12:56] LABS: Folate 14.2 ng/mL (> or = 4.0); Vitamin B12 667 pg/mL (200-900)
== END 2024-10-22 10:01 | disposition home or self-care (01) ==
LOC: HO.HMGCLDS 10:00
PROVIDERS: PCP Nurse Practitioner Family; Visit Provider Nurse Practitioner Family
DX: I10 Essential (primary) hypertension (principal)
CPT/HCPCS: 36415; 80053; 80061; 81003; 82607; 82746; 84443; 85025

== ENCOUNTER 2024-10-24 12:43 | Outpatient (AMB) | payer OTHER, SELFPAY ==
[2024-10-24 12:47] VITALS: BP 120/72; PULSE 80; O2SAT 97; BMI 37.8
--- NOTE | 2024-10-24 12:47 | MHC.PC.OV ---
Vital Signs 10/24/24 12:47 Height 5 ft 9 in Weight 256 lb BMI 37.8 BP 120/72 Blood Pressure Location Lt brachial Position Sitting Pulse 80 Pulse Source Pulse Oximeter Pulse Oximetry (%) 97 Oxygen Delivery Method Room Air Intake Visit Reasons: Annual PE per Buck Accompanied by: Self / Same As Patient Allergies Penicillins [PENICILLINS] Allergy (Severe, Verified 10/24/24 13:40) NAUSEA & VOMITING bee pollen [BEE STINGS] Allergy (Unknown, Verified 10/24/24 13:40) UNKNOWN penicillamine Allergy (Unknown, Verified 10/24/24 13:40) unknown Medication List - Last Reconciled 10/24/24 by Buck Ling, [facility]- atenolol 50 mg PO DAILY bupropion HCl XL 450 mg PO QAM buspirone 10 mg (2 x 5 mg) PO BID cetirizine (Zyrtec) 10 mg PO DAILY PRN doxepin 10 mg PO BEDTIME hydrochlorothiazide 25 mg PO QAM 90 days lidocaine 5% 1 patch topical DAILY losartan 50 mg PO BID 90 days meloxicam 7.5 mg PO DAILY 30 days rosuvastatin 10 mg PO DAILY 90 days simethicone (Gas Relief (simethicone)) 180 mg PO TID PRN tizanidine 2 mg PO BID PRN 30 days Tobacco use date assessed: 10/24/24 Dental Screening Dental Screen Date: 10/24/24 Did you have a dental visit in the last 12 months?: Yes Did you have a dental problem in the last 6 months where you did not have access to dental care?: No Was dental information given to patient?: Patient has dentist HPI Annual PE per Buck HPI Details History of Present Illness The patient is a 49-year-old male presenting with complaints related to recent exposure to sand in the right eye, occurring approximately two weeks prior. The incident resulted in irritation of the lateral sclera, and the patient initially experienced some blurring of vision, which has since improved. No lacerations or abrasions were observed. In addition, the patient denies symptoms such as chest pain, respiratory distress, abdominal discomfort, bowel or urinary irregularities, suggesting no acute systemic distress. His obesity was noted as a contributing factor to his overall health status, with liver enzyme abnormalities pointing towards the possibility of fatty liver disease. Plans for an abdominal ultrasound are in place to further evaluate the liver enzyme elevation. Needs a new referral to podiatry, was getting cortisone injections with relief (plantar fas). Re-referring for colon screen Health Maintenance - Advised follow-up with ophthalmology for further evaluation of the right eye. - Plan for abdominal ultrasound to assess potential hepatic steatosis due to elevated liver enzymes. Social History Review of Systems - Eyes: Reports initial blurred vision in right eye post sand exposure; improvement noted. - General: Denies chest pain, shortness of breath, abdominal pain, constipation, diarrhea, and urinary issues. Physical Exam General: Cooperative, healthy appearing, comfortable, no acute distress and well developed, obese Orientation: Patient oriented x3 Limitations: No limitations Head: Normal to inspection Ears: Hearing grossly normal bilaterally Nose: Normal external nose present Face and sinus: Normal facial exam Eyes: Appearance normal, both eyes and all related structures, but eyes are a little bit bloodshot in the lateral aspect, sclera region. No signs of any lacerations or abrasions. Neck: Normal visual inspection and Yes full ROM Respiratory: Normal respiratory effort and able to speak in complete sentences. Clear to auscultation bilaterally Cardiovascular: Regular rate and rhythm. Normal S1 and S2 GI: Normal to inspection. Soft to palpation and nontender. Skin: No rashes or lesions noted Neuro: Patient oriented x3 Extremities: Normal to inspection Results - Labs: Elevated liver enzymes indicative of potential fatty liver disease. Plan The patient presented for a routine physical examination with noted concerns about his right eye exposure to sand, showing no lacerations or abrasions. A follow-up with ophthalmology was discussed to ensure appropriate care and prevent complications. Elevated liver enzymes suggest the possibility of hepatic steatosis; thus, an abdominal ultrasound is planned. Discussions included addressing lifestyle factors contributing to obesity, which may impact hepatic health. Ongoing monitoring of his health status is indicated to ensure no progression or emergence of new complications. Discussion Notes During the visit, we discussed the incident involving the patient's right eye exposure to sand, and it was concluded to proceed with an ophthalmology consultation to ensure thorough evaluation and potential treatments. For the elevated liver enzymes suggestive of fatty liver, I recommended an abdominal ultrasound and explained the potential benefits of identifying any underlying hepatic condition early. The importance of addressing obesity through lifestyle changes was emphasized to mitigate further risk of hepatic and other systemic issues. Follow-up care and further evaluations will be based on the findings from the ophthalmology assessment and ultrasound results. Patient Instructions - Follow up with ophthalmology as directed for further evaluation of the right eye. - Undergo an abdominal ultrasound to assess liver condition. - Engage in lifestyle modifications to address obesity and potential hepatic impact. - Monitor for any new symptoms and seek medical care if needed. [facility] Medical History Generalized anxiety disorder Major depressive disorder, recurrent episode with anxious distress HTN (hypertension) Compression fracture of L2 Anxiety Surgical History Hx of appendectomy Family History Mother Mental health disorder Social History Housing: House Alcohol intake: never Patient Tobacco Use Status: Current someday Tobacco user Tobacco use type: Cigar e-Cigarette/Vaping Use: Never Used Second Hand Smoke Exposure: Yes Current occupational status: unemployed Cognitive needs: No Hearing needs: No Vision needs: No Questionnaire PHQ-9 Over the last 2 weeks, how often have you been bothered by any of the following problems? 1. Little interest or pleasure in doing things: not at all 2. Feeling down, depressed, or hopeless: not at all 3. Trouble falling or staying asleep, or sleeping too much: several days 4. Feeling tired or having little energy: not at all 5. Poor appetite or overeating: not at all 6. Feeling bad about yourself - or that you are a failure or have let yourself or your family down: not at all 7. Trouble concentrating on things, such as reading the newspaper or watching television: not at all 8. Moving or speaking so slowly that other people could have noticed. Or the opposite - being so fidgety or restless that you have been moving around a lot more than usual: not at all 9. Thoughts that you would be better off or of hurting yourself in some way: not at all Total score: 1 Depression Screening Interpretation: Negative Depression Screening Done: Yes 71110 - PHQ-9 Billing: Yes Source: Developed by Drs. David Dow, Shasha Ramon Swanson and colleagues, with an educational shane from [employer]. Thrive Questionnaire Date Thrive assessed: 10/24/24 I am a: Patient What is your living situation today?: I have a steady place to live Within the past 12 months, did the food you bought not last and you didn't have the money to get more?: Never true Within the past 12 months, did you worry whether your food would run out before you got money to buy more?: Never true Do you have trouble paying for medicines?: No Do you have trouble getting transportation to medical appointments?: No Do you have trouble paying your heating and electricity bill?: No Do you have trouble taking care of your child, family member or friend?: No Do you have trouble with day-to-day activities such as bathing, preparing meals, shopping, managing finances, etc.?: No Are you currently unemployed and looking for a job?: No Are you interested in more education?: No Please select the resources that you would like help with: None Currently or been in a relationship where the following occur: No concerns reported THRIVE Score: 0 AUDIT C Alcohol Use Questionnaire (AUDIT-C) 1. How often do you have a drink containing alcohol?: Monthly or less 2. How many drinks containing alcohol do you have on a typical day when you are drinking?: 3 or 4 3. How often do you have six or more drinks on one occasion?: Never Total Score: 2 Score Reviewed/Action Taken: Yes JAH-7 AMB Questionnaire JAH-7 Date JAH - 7 assessed: 10/24/24 Feeling nervous, anxious, or on edge: 0 = Not at all Not being able to stop or control worryin = Not at all Worrying too much about different things: 0 = Not at all Trouble relaxin = Not at all Being so restless that it is hard to sit still: 0 = Not at all Becoming easily annoyed or irritable: 0 = Not at all Feeling afraid as if something awful might happen: 0 = Not at all Total JAH-7 score (0-4 normal; 5-9 mild; 10-14 moderate; 15-21 severe): 0 Source: Developed by Drs. David Dow, Ramon Tyler and colleagues, with an educational shane from [employer]. JAH-7 Assessment Billing JAH-7 Assessment Tool: JAH-7 Assessment 75917 Physical exam (Primary Care) Vital Signs: Last Vital Signs Pulse 80 10/24/24 12:47 BP 120/72 10/24/24 12:47 Pulse Ox 97 10/24/24 12:47 Oxygen Delivery Method Room Air 10/24/24 12:47 BMI result Body Mass Index 37.8 Tobacco/Smoking Status: Tobacco use Status Tobacco use date assessed 10/24/24 10/24/24 12:48 Patient Tobacco Use Status Current someday Tobacco 10/24/24 12:48 Tobacco use type Cigar 10/24/24 12:48 e-Cigarette/Vaping Use Never Used 10/24/24 12:48 PHQ-9: PHQ-9 Score PHQ-9: Total score 1 10/24/24 12:48 Depression Screening Interpretation: Negative Thrive Assessment: Date of Thrive Assessment Date Thrive assessed 10/24/24 10/24/24 12:48 Currently or been in a relationship where the following occur: No concerns reported Office Procedures Fluorescein eye exam Details: fluorescein drops without difficulty, no abrasions/lacerations noted. recommend ophthalmology eval. Coding Level of Care Code Est Pt Level 3 (45098) Est Pt Prev Care 40-64y(32911) Diagnoses Physical exam Z00.00 Left foot pain M79.672 Plantar fasciitis of left foot M72.2 Eye discomfort H57.10 Snores R06.83 Screening for colon cancer Z12.11 Elevated liver enzymes R74.8 Additional Codes JAH-7 Assessment Billing - JAH-7 Assessment Tool: JAH-7 Assessment 04867 ([id number]) PHQ-9 - 39742 - PHQ-9 Billing: Yes ([id number]) Assessment & Plan Assessment & Plan (1) Physical exam: Code(s): Z00.00 - Encounter for general adult medical examination without abnormal findings Category: Medical (2) Left foot pain: Code(s): M79.672 - Pain in left foot Category: Medical (3) Plantar fasciitis of left foot: Code(s): M72.2 - Plantar fascial fibromatosis Category: Medical (4) Eye discomfort: Code(s): H57.10 - Ocular pain, unspecified eye Category: Medical (5) Snores: Code(s): R06.83 - Snoring Category: Medical (6) Screening for colon cancer: Code(s): Z12.11 - Encounter for screening for malignant neoplasm of colon Category: Medical (7) Elevated liver enzymes: Code(s): R74.8 - Abnormal levels of other serum enzymes Category: Medical Plan . Orders: Orders UA CC w/rflx Micro + Cult Today Z00.00 - Encounter for general adult medical examination without abnormal findings US abdomen complete Today R74.8 - Abnormal levels of other serum enzymes Referrals Podiatry Referral M72.2 - Plantar fascial fibromatosis, M79.672 - Pain in left foot Ear/Nose/Throat Referral R06.83 - Snoring Sleep Medicine Referral R06.83 - Snoring Gastroenterology Referral Z12.11 - Encounter for screening for malignant neoplasm of colon
== END 2024-10-24 13:40 | disposition home or self-care (01) ==
LOC: HO.HMCC 12:44
PROVIDERS: PCP Nurse Practitioner Family; Visit Provider Nurse Practitioner Family
DX: Z00.00 Encounter for general adult medical examination without abnormal findings (principal); H57.11 Ocular pain, right eye; M79.672 Pain in left foot; M72.2 Plantar fascial fibromatosis; R06.83 Snoring; Z12.11 Encounter for screening for malignant neoplasm of colon; R74.8 Abnormal levels of other serum enzymes

== ENCOUNTER → 2024-10-24 12:43 | Outpatient (BNVA) | payer OTHER, SELFPAY | PROVIDERS: PCP Nurse Practitioner Family; Visit Provider Nurse Practitioner Family | DX: Z00.00 Encounter for general adult medical examination without abnormal findings (principal); M79.672 Pain in left foot; M72.2 Plantar fascial fibromatosis; H57.11 Ocular pain, right eye; R06.83 Snoring; R74.8 Abnormal levels of other serum enzymes | CPT/HCPCS: 96127 ==

== ENCOUNTER 2024-12-09 08:27 | Outpatient (REF) | payer OTHER, SELFPAY ==
--- NOTE | ~2024-12-09 | US_ITS ---
EXAMINATION: US ABDOMEN HISTORY: R74.8 - Abnormal levels of other serum enzymes TECHNIQUE: Real-time grayscale ultrasound imaging of the abdomen was performed and images were reviewed. COMPARISON: Correlation is made with an unenhanced CT of the abdomen dated 05/14/2017. FINDINGS: Liver: The liver is normal in size. The liver demonstrates mildly increased echotexture, consistent with steatosis. No focal mass or intrahepatic biliary ductal dilatation is identified. There is normal hepatopedal flow in the portal vein. Gallbladder and biliary tree: The gallbladder is unremarkable, without evidence of calculi, wall thickening, or pericholecystic fluid. There is no sonographic Crespo sign. The common bile duct is normal in caliber measuring 4 mm. Kidneys: The right kidney measures 11.7 cm in length. The left kidney measures 11.2 cm in length. The kidneys are unremarkable, without evidence of masses, hydronephrosis, or calculi. Pancreas: The pancreatic head, neck, and body are unremarkable. The pancreatic tail is obscured by bowel gas. Spleen: The spleen is normal in size and contour, measuring 10.5 cm in length. Abdominal aorta and inferior vena cava: The visualized portions of the abdominal aorta and inferior vena cava are normal in caliber. There is no free fluid in the abdomen. US/US abdomen complete IMPRESSION: Mild hepatic steatosis. Otherwise unremarkable abdominal ultrasound. Electronically signed by: David Leggett MD 12/09/2024 09:30 AM EDT
== END 2024-12-09 08:28 | disposition home or self-care (01) ==
LOC: HO.US 08:27
PROVIDERS: PCP Nurse Practitioner Family; Visit Provider Nurse Practitioner Family
DX: R74.8 Abnormal levels of other serum enzymes (principal)
CPT/HCPCS: 76700

== ENCOUNTER → 2024-12-09 08:29 | Outpatient (BNV) | payer OTHER, SELFPAY | PROVIDERS: PCP Nurse Practitioner Family; Visit Provider Radiology Diagnostic Radiology | DX: K76.0 Fatty (change of) liver, not elsewhere classified (principal) | CPT/HCPCS: 76700 ==

== ENCOUNTER 2025-03-24 13:10 | Outpatient (AMB) | payer OTHER, SELFPAY ==
--- NOTE | 2025-03-24 13:14 | A.OFFVIS_ITS ---
Vital Signs 03/24/25 13:15 Height 5 ft 9 in Weight 244 lb BMI 36.0 BP 134/76 Blood Pressure Location Rt brachial Position Sitting Pulse 72 Pulse Source Pulse Oximeter Pulse Oximetry (%) 96 Oxygen Delivery Method Room Air Intake Visit Reasons: EGD/colonoscopy recall 2019 Intake Note: New/Returning pt for EGD/[place] [employer] recall. CC: Pt denies any GI sx or concerns at this time. Manager Photo Required: No Accompanied by: Self / Same As Patient Allergies Penicillins (PENICILLINS) Allergy (Severe, Verified 10/24/24 13:40) NAUSEA & VOMITING bee pollen (BEE STINGS) Allergy (Unknown, Verified 10/24/24 13:40) UNKNOWN penicillamine Allergy (Unknown, Verified 10/24/24 13:40) unknown Medication List - Last Reconciled 03/24/25 by Denise Deleon CNP atenolol 50 mg PO DAILY B-complex with vitamin C 1 tab PO DAILY bupropion HCl XL 450 mg PO QAM 30 days buspirone 10 mg PO BID 90 days cetirizine (Zyrtec) 10 mg PO DAILY PRN doxepin 10 mg PO BEDTIME hydrochlorothiazide 25 mg PO QAM 90 days lidocaine 5% 1 patch topical DAILY losartan 50 mg PO BID 90 days meloxicam 7.5 mg PO DAILY 30 days rosuvastatin 10 mg PO DAILY 90 days simethicone (Gas Relief (simethicone)) 180 mg PO TID PRN tizanidine 2 mg PO BID PRN 30 days HPI HPI EGD/colonoscopy recall 2019: Details: Patient is a 50-year-old male with PMH of depression, GERD, hypertension. Referred by PCP for pre colonoscopy screening Last colonoscopy in March 2019 during which three polyps were removed, two precancerous and one benign. He denies any current concerns with diarrhea or constipation, except episodic diarrhea after consuming junk food. He denies seeing blood in his stools but expresses no abdominal pain apart from an unrelated muscle injury. He notes improved gastroesophageal reflux disease (GERD) symptoms compared to 2019 when inflammation and evidence of reflux were noted on an upper endoscopy. GERD symptoms now occur no more than once every two months, usually triggered by poor dietary choices, and are no longer accompanied by regurgitation. Ashok mentions recent difficulty with dysphagia, affecting both solids and liquids inconsistently over the last six to eight months. He attributes this to his soft palate, which he reports was previously trimmed during a tonsil and adenoid surgery in adolescence but has now started to cause issues again. He is currently being evaluated by an ENT for this concern. Significant weight loss (~80 lbs) occurred following dietary changes using the Atkins diet, but his weight has since been stable within the 240-250 lb range. Patient denies: fever/chills, n/v, appetite changes, regurgitation, unintentional wt loss, ab pain or melena/hematochezia. Social hx: -Rare ETOH consumption, three to four times per year. -uses marijuana oil weekly, denies other recreational drug use -Occasional cigar use - family hx as below -denies personal hx of CA -denies significant cardiopulmonary history -tolerated anesthesia in the past without difficulty. PFS Medical History (Updated 03/24/25 @ 13:53 by Denise Deleon CNP) Dysphagia Tubular adenoma of colon Acid reflux Generalized anxiety disorder Major depressive disorder, recurrent episode with anxious distress HTN (hypertension) Compression fracture of L2 Anxiety Surgical History Hx of appendectomy Family History (Updated 03/24/25 @ 13:31 by Denise Deleon CNP) Mother Mental health disorder Father Colon cancer, Onset Age: 66 Social History Housing: House Alcohol intake: never Patient Tobacco Use Status: Current someday Tobacco user Tobacco use type: Cigar e-Cigarette/Vaping Use: Never Used Second Hand Smoke Exposure: Yes Current occupational status: unemployed Cognitive needs: No Hearing needs: No Vision needs: No Review of Systems Const Reports as per HPI ENT Reports as per HPI Card Reports as per HPI Resp Reports as per HPI GI Reports as per HPI Reports as per HPI Physical Exam Vital Signs: Last Vital Signs Pulse 72 03/24/25 13:15 BP 134/76 03/24/25 13:15 Pulse Ox 96 03/24/25 13:15 Oxygen Delivery Method Room Air 03/24/25 13:15 BMI result Body Mass Index 36.0 Const General: healthy appearing, no acute distress and well developed Nutritional Appearance: average body habitus Orientation/consciousness: patient oriented x3 HEENT Head: Yes normal to inspection, Yes normocephalic and Yes atraumatic Face and sinus: Yes normal facial exam Eyes General: appearance normal, both eyes and all related structures Neck Neck: Yes normal visual inspection Resp Effort & Inspection: normal respiratory effort, able to speak in complete sentences, no tracheal deviation and symmetric chest movement GI Auscultation: normal bowel sounds Neuro General: patient oriented x3 Gait exam (Neuro): Normal gait present Psych Appearance: grossly normal Mental Status: mental status grossly normal Speech and movement: Normal speech and movement present Affect: normal affect Attitude: cooperative Thought process: Normal thought process present Thought content: Normal thought content present Insight: Good insight present (Psych) Judgement: Good judgement present (Psych) Assessment & Plan Assessment & Plan (1) Screening for colon cancer: Comment: 04/05/19 colonoscopy complete with excellent prep-9-10 mm sessile sessile serrated polyp (Ascending), 10 mm TA (Transverse), 4-5 mm hyperplastic polyp (Sigmoid), diverticulosis Code(s): Z12.11 - Encounter for screening for malignant neoplasm of colon Category: Medical Plan: Overdue for polyp surveillance colonoscopy. No alarm features. Medications: -prescriptions for laxative tablets and PEG sent to pharmacy; instructions on clear liquid diet given. Patient educated on scheduling process, procedure preparation, including avoiding certain foods and ensuring clear liquid intake Advised on necessity for ride post-procedure due to sedation. (2) Acid reflux: Comment: 04/05/19 EGD -Gastritis and GERD Code(s): K21.9 - Gastro-esophageal reflux disease without esophagitis Category: Medical Qualifiers: Esophagitis presence: without esophagitis Qualified Code(s): K21.9 - Gastro-esophageal reflux disease without esophagitis Plan: Hx of GERD with marked improvement; rare, food-triggered symptoms. Additional Testing: EGD at time of colonoscopy to reassess mucosal status. Medication Management: No current acid suppression required; monitor for symptom recurrence. Lifestyle Recommendations: Continue to avoid dietary triggers; reinforce weight maintenance and healthy eating patterns. Follow-Up: Review EGD findings post-procedure; reassess if symptoms recur. (3) Dysphagia: Code(s): R13.10 - Dysphagia, unspecified Category: Medical Qualifiers: Dysphagia type: unspecified Qualified Code(s): R13.10 - Dysphagia, unspecified Plan: Difficulty swallowing liquids/solids attributed to soft palate anatomy; ongoing ENT evaluation. Additional Testing: If ENT findings are inconclusive, recommend swallow study to assess for esophageal narrowing or hernia. Plan Follow-up after endoscopy or sooner as needed Time: I spent a total of 30 minutes on the date of encounter which includes: Preparing to see the patient (reviewed previous documentation, test results and medical history) Performing a medically appropriate exam and/or evaluation Ordering medications, tests, and procedures Documenting clinical information in the health record Orders: Referrals GI Procedure Notification D12.6 - Benign neoplasm of colon, unspecified, K21.9 - Gastro-esophageal reflux disease without esophagitis, Z12.11 - Encounter for screening for malignant neoplasm of colon Medications: New bisacodyl Take per colonoscopy instructions 5 mg PO BID 4 tabs 0RF peg 3350-electrolytes 236-22.74-6.74 -5.86 gram until fecal effluent is clear 240 mL PO Q10M 4,000 mL 0RF simethicone (Gas Relief (simethicone)) per colonoscopy prep instructions 125 mg PO ONCE 4 caps 0RF abdominal distention Coding Level of Care Code New Pt New Pt Level 3 (26748) Patient Type New Diagnoses Screening for colon cancer Z12.11 Gastroesophageal reflux disease without esophagitis K21.9 Esophagitis presence: without esophagitis Dysphagia, unspecified type R13.10 Dysphagia type: unspecified
[2025-03-24 13:15] VITALS: BP 134/76; PULSE 72; O2SAT 96; BMI 36.0
--- OUTSIDE RECORDS SUMMARY | 2025-03-24 13:22 | XMS_ITS | Clinical Summary ---
Author Organization [facility] Address [address] [place], [place] [id number] Phone Care Team Providers Care Display Screen Fabricator Name Role Phone Buck Ling NP Primary Care Provider + Allergies Active Allergy Reactions Criticality Noted Date Comments Penicillins Itching 02/03/2023 Medications atenolol (TENORMIN) 50 mg tablet Take 1 tablet by mouth every morning. 3 Active buPROPion (FORFIVO XL) 450 mg Tb24 ER 24 hr tablet Take 450 mg by mouth every morning. 3 Active hydroCHLOROthia zide (HYDRODIURIL) 25 MG tablet Take 25 mg by mouth daily. 3 Active lidocaine (LIDODERM) 5 % APPLY 1 PATCH TOPICALLY DAILY FOR BACK PAIN LEAVE ON MOST PAINFUL AREA (12HRS ON/12HRS OFF) 3 Active losartan (COZAAR) 50 MG tablet Take 50 mg by mouth 2 (two) times a day. 3 Active meloxicam (MOBIC) 7.5 MG tablet Take 1 tablet by mouth every morning. 3 Active rosuvastatin (CRESTOR) 10 MG tablet Take 1 tablet by mouth every morning. 3 Active tiZANidine (ZANAFLEX) 2 MG tablet Take 2 mg by mouth nightly at bedtime as needed. 3 Active busPIRone (BUSPAR) 10 MG tablet Take 10 mg by mouth 2 (two) times a day. Active Active Problems Problem Noted Date Diagnosed Date Flat foot 02/10/2023 Plantar fasciitis 02/10/2023 Tendonitis, Achilles, left 02/10/2023 Social History Tobacco Use Types Packs/Day Years Used Date Smoking Tobacco: Never Smokeless Tobacco: Never Tobacco Cessation:Counseling Given: Not Answered Alcohol Use Standard Drinks/Week Comments Yes 0 (1 standard drink = 0.6 oz pur e alcohol) Education Answer Date Recorded Are you interested in more education? Not on dwayne e 01/28/2023 Are you concerned about learning? Not on file 01/28/2023 No 01/28/2023 No 01/28/2023 Digital Access Answer Date Recorded No 01/28/2023 No 01/28/2023 Reliable internet access at home? Not on file 01/28/2023 Device with a working camera? Not on file Sex and Gender Information Value Date Recorded Sex Assigned at Not on file Legal Sex Male 9:29 PM EDT Gender Identity Not on file Sexual Orientation Not on file Last Filed Vital Signs Vital Sign Reading Time Taken Comments Blood Pressure - - Pulse - - Temperature - - Respiratory Rate - - Oxygen Saturation - - Inhaled Oxygen Concentration - - Weight 113.4 kg (250 lb) 02/03/2023 10:10 AM EDT Height 174 cm (5' 8.5 ) 02/03/2023 10:10 AM EDT Body Mass Index 37.46 02/03/2023 10:10 AM EDT Plan of Treatment Health Maintenance Due Date Last Done Comments Adult Td,Tdap Booster 1975 CREATININE LEVEL 1975 LIPID PANEL 1975 POTASSIUM LEVEL 1975 DEPRESSION SCREENING 1987 HEPATITIS C SCREENING 1993 HIV ONE-TIME SCREENING (18-6 5 YEARS) 1993 SCREENING FOR DIABETES 2010 COLOGUARD 01/16/2020 COLONOSCOPY 01/16/2020 COLORECTAL CANCER SCREENING 01/16/2020 FIT TEST 01/16/2020 FOBT 01/16/2020 SIGMOIDOSCOPY 01/16/2020 VIRTUAL COLONOSCOPY 01/16/2020 PNEUMOCOCCAL VACCINES (50+ years) (1 of 1 - PCV) 2025 ZOSTER VACCINES (1 of 2) 2025 INFLUENZA VACCINE (#1) 2025 05/14/2017 COVID-19 VACCINE (3 - 2024-2 6 season) 2025 08/18/2020, 07/21/2020 SMOKING STATUS SCREENING (On ce After 26 Yrs) Completed 02/03/2023 HEPATITIS A VACCINES Aged Out No long er eligible based on patient's age to complete this topic HIB VACCINES Aged Out No longer eligi ble based on patient's age to complete this topic MENINGOCOCCAL VACCINES (ACWY) Aged Out No longer eligible based on patient's age to complete this topic MENINGOCOCCAL VACCINES (B) Aged Out N o longer eligible based on patient's age to complete this topic Medical Devices Not on file Insurance [employer] DIRECT [employer] DIRECT [employer] DIRECT [employer] DIRECT [employer] DIRECT [employer] DIRECT Care Teams Display Screen Fabricator Relationship Specialty Start Date End Date Buck Ling NP [address] [place] [address] PCP - General Nurse Practitioner 01/26/23 Additional Source Comments The information contained in this document represents components of the legal health record. It is not the complete legal health record.[facility]
== END 2025-03-24 13:37 | disposition home or self-care (01) ==
LOC: HO.HGI 13:11
PROVIDERS: PCP Nurse Practitioner Family; Visit Provider Nurse Practitioner Family
DX: Z01.818 Encounter for other preprocedural examination (principal); Z12.11 Encounter for screening for malignant neoplasm of colon; K21.9 Gastro-esophageal reflux disease without esophagitis; R13.10 Dysphagia, unspecified
CPT/HCPCS: S0285

== ENCOUNTER → 2025-03-24 13:10 | Outpatient (BNVA) | payer OTHER, SELFPAY | PROVIDERS: PCP Nurse Practitioner Family; Visit Provider Nurse Practitioner Family | DX: K21.9 Gastro-esophageal reflux disease without esophagitis (principal); Z12.11 Encounter for screening for malignant neoplasm of colon; R13.10 Dysphagia, unspecified; F17.290 Nicotine dependence, other tobacco product, uncomplicated; Z13.89 Encounter for screening for other disorder ==

== ENCOUNTER 2025-05-22 07:50 | Outpatient (REF) | payer OTHER, SELFPAY ==
[2025-05-22 10:38] LABS: MANUAL DIFF FLAG NO
[2025-05-22 10:47] LABS: Hematocrit 45.7 % (42.0-52.0); Hemoglobin 15.4 g/dl (14.0-18.0); Imm Gran Abs Auto 0.02 X10*3/uL (0.00-0.03); Imm Gran Pct Auto 0.2 % (0.0-0.4); Lymphocytes Absolute Auto 2.0 X10*3/uL (1.2-4.9); Mean Corpuscular HGB Conc 33.7 g/dl (31.0-36.0); Mean Corpuscular Hemoglobin 31.4 pg (27.0-33.0); Mean Corpuscular Volume 93.3 fL (80.0-98.0); NRBC Abs Auto 0.000 X10*3/uL (0.0-0.012); NRBC Pct Auto 0.0 /100WBC (0.0-0.2); Platelet Count 260 X10*3/uL (160-400); Red Blood Count 4.90 X10*6/uL (4.60-5.80); White Blood Count 8.4 X10*3/uL (4.8-10.8)
[2025-05-22 11:22] LABS: Alanine Aminotransferase 43 U/L (0-40); Albumin Level 4.7 g/dL (3.5-5.0); Alkaline Phosphatase 79 U/L (39-117); Anion Gap 10 (12-20); Aspartate Amino Transferase 45 U/L (5-37); Blood Urea Nitrogen 28 mg/dL (9-16); Calcium 9.8 mg/dL (8.4-10.2); Carbon Dioxide 31 mmol/L (22-29); Chloride 105 mmol/L (96-108); Cholesterol 174 mg/dL (<200); Estimated Glomerular Filt Rate > 60; HDL Cholesterol 48 mg/dL (>40); Potassium 4.0 mmol/L (3.3-5.1); Sodium 142 mmol/L (135-145); Total Protein 7.6 g/dL (6.5-8.0); Triglycerides 101 mg/dL (<150)
== END 2025-05-22 07:51 | disposition home or self-care (01) ==
LOC: HO.HMGCLDS 07:50
PROVIDERS: PCP Nurse Practitioner Family; Visit Provider Nurse Practitioner Family
DX: K21.9 Gastro-esophageal reflux disease without esophagitis (principal); E78.5 Hyperlipidemia, unspecified; H47.019 Ischemic optic neuropathy, unspecified eye; Z12.5 Encounter for screening for malignant neoplasm of prostate
CPT/HCPCS: 36415; 80053; 80061; 84153; 84443; 85025

== ENCOUNTER 2025-05-22 07:50 | Outpatient (AMB) | payer OTHER, SELFPAY ==
--- OUTSIDE RECORDS SUMMARY | 2025-04-05 12:04 | XMS_ITS ---
Author Organization [facility] Address [address] [place] [address] Care Team Providers Care Bus Company Manager Name Role Phone Buck Guzman Primary Care Provider Unav ailable Eriberto Louis Unavailable [phone] Black, Rhea Unavailable [phone] REASON FOR VISIT Update Demographics - Personal Info Encounters Encounter Location Date Provider Diagnosis [facility] [address] [place] [address] 04/05/2025 Rhea Black Plan Of Treatment No Information Progress Notes * Ashok KNAPP ADOB:1975 (50 yo M)Acc No.[id number]:04/05/2025 Patient: Salvador Ashok CALVILLO :1975 A ge:50 Y S ex:Male Address:[address] [place] [address] Subjective: * Chief Complaints: * U pdate Demographics - Personal Info * Medical History: * Surgical History: * Hospitalization/Major Diagno stic Procedure: * Medications: Objective: * Vitals: * Physical Examination: Assessment: Plan: * Treatment: * Procedure Codes: * * Date:
--- OUTSIDE RECORDS SUMMARY | 2025-04-17 08:00 | XMS_ITS ---
Author Organization [facility] Address [address] [place] [address] Care Team Providers Care Aircraft Pneudraulics Repairer Name Role Phone Buck Guzman Primary Care Provider Unav ailable Heriberto Eriberto Unavailable [phone] Rhea Del Rio Unavailable [phone] Allergies Allergen (clinical drug ingredient) Drug/Non Drug [...] Active Encounters Encounter Location Date Provider Diagnosis [facility] [address] [place] [address] 04/17/2025 Rhea Del Rio Plan Of Treatment No Information Progress Notes * Ashok KNAPP ADOB:1975 (50 yo M)Acc No.[id number]:04/17/2025 Progress Notes Patient: Salvador Ashok CALVILLO Provider: Winter Del Rio DPM :1975 A ge:50 Y S ex:Male Date:04/17/2025 Address:[address] [place], [place] [address] Pcp:Buck Ling NP-VERONICA Subjective: * Chief Complaints: [...] enies. C ardiovascular: Pacemaker d enies. M FUNERAL CAR DRIVER d enies. W PW d enies. 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 * Medications: T aking Meloxicam 7.5 [...] 0 04/17/2025 Generated for Karthik omalley/Kadi/Jael on: 07/22/2024 07:53 AM EST
--- OUTSIDE RECORDS SUMMARY | 2025-05-22 07:53 | XMS_ITS | Patient Health Record ---
Author Organization [facility] Address [address] [place] [address] Care Team Providers Care Pullman Car Repairer Name Role Phone Buck Guzman Primary Care Provider Unav ailable Eriberto Louis Unavailable [phone] Black, Rhea Unavailable [phone] Allergies Allergen (clinical drug ingredient) Drug/Non Drug Allergy documented on EMR Reaction Allergy Type Onset Date Status Substance with penicillin structure and antibacterial mechanism of action (substance) Penicillins diarrhea, itchiness Drug Allergy Active Reason For Referral No Information Medications Medication SIG (Take, Route, Frequency, Duration) Notes Start Date End Date Status busPIRone HCl 10 MG 1 tablet Orally Twic e a day Active Meloxicam 7.5 MG 1 tablet Orally Once a day Active Atenolol 50 MG 1 tablet Orally Once a day Active hydroCHLOROthiazide 25 MG 1 tablet in th e morning Orally Once a day Active Losartan Potassium 50 MG 1 tablet Orally Once a day Active Rosuvastatin Calcium 10 MG 1 tablet Oral ly Once a day Active buPROPion HCl ER (XL) 450 MG 1 tablet in the morning Orally Once a day Active Social History Tobacco Use: Social History Observation Description Date Details (start date - stop date) Never Smoker NA - NA Tobacco use other than smoking: Question Answer Notes Are you an other tobacco user? No Tobacco Control (Standard) Question Answer Notes Tobacco use: Nonsmoker Additional Findings: Tobacco non-user Current no nsmoker AUDIT-C (Standard) Question Answer Notes Did you have a drink contain ing alcohol in the past year? Yes How often did you have a dri nk containing alcohol in the past year? Monthly or less (1 point) How many drinks did you have on a typical day when you were drinking in the past year? 1 or 2 drinks (0 point) How often did you have six o r more drinks on one occasion in the past year? 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 Vital Signs Blood pressure diastolic 80 mm Hg 04/18/2025 Height 5ft 9in in 04/18/2025 Blood pressure systolic 120 mm Hg 04/18/2025 Weight 240 lbs 04/18/2025 BMI 35.44 kg/m2 04/18/2025 Encounters Encounter Location Date Provider Diagnosis [facility] [address] [address] 04/18/2025 Eriberto Heriberto Pain in left foot M79.672 ; Plantar fibromatosis M72.2 and 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.[address] [facility] [address] [address] 04/24/2025 Eriberto Heriebrto Plantar fibromatosis M72.2 and 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.[facility] [address] 04/05/2025 Rhea Del Rio Assessments Encounter Date Diagnosis (ICD Code) Assessment Notes Treatment Notes Treatment Clinical Notes Section Notes 04/18/2025 Pain in left foot (ICD-10 - M79.672) 04/18/2025 Plantar fibromatosis (ICD-10 - M72.2) 04/24/2025 Plantar fibromatosis (ICD-10 - M72.2) 04/24/2025 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-10 - 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.22) 04/18/2025 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-10 - D21.22) Plan Of Treatment Pending Test Test Name Order Date MRI : Foot, left 04/24/2025 MRI : Foot, right 04/18/2025 X ray : Foot, left 3V 04/18/2025 Insurance Providers Payer Name Payer Address Payer Phone Subscriber Number Group Number Insured Name Patient Relationship to Insured Coverage Start Date Coverage End Date Inderjit [address] [place] [phone] [id number] Ashok Vargas Self - patient is the insured Medical (General) History Medical History History ICD Code Anxiety Back,Hip,and Knee pain Broken bones High Blood Pressure Chicken pox Hypercholesterolemia Surgical History Surgery Date(Month/Year) appendectomy 04/2017 wisdom teeth extraction 1992
--- OUTSIDE RECORDS SUMMARY | 2025-05-22 07:53 | XMS_ITS | Clinical Summary ---
Author Organization [facility] Address [address] [place], [place] [id number] Phone Care Team Providers Care Doormaker Name Role Phone Buck Ling NP Primary [...] - 2024-2 6 season) 2025 08/18/2020, 07/21/2020 RSV VACCINE (1 - 1-dose 75+ series) 2050 SMOKING STATUS SCREENING (On ce After 26 [...] topic Medical Devices Not on file Insurance [employer] DIRECT [employer] DIRECT [employer] PL[employer] DIRECT [employer] DIRECT DIRECT PLANS DIRECT Care Teams Doormaker Relationship Specialty Start Date End Date Buck Ling NP [address] [place] [place] [address] PCP - General Nurse Practitioner 01/26/23 Additional Source Comments The information contained in this document represents components of the legal health record. It is not the complete legal health record.[facility]
[2025-05-22 08:11] VITALS: BP 120/78; PULSE 75; RESP 16; TEMP 37.2; O2SAT 96; BMI 36.6
--- NOTE | 2025-05-22 08:11 | A.OFFPC_ITS ---
Vital Signs 05/22/25 08:11 Height 5 ft 9 in Weight 248 lb BMI 36.6 BP 120/78 Blood Pressure Location Lt brachial Position Sitting Respiration 16 Pulse 75 Pulse Source Pulse Oximeter Temp 98.9 F Temp Source Oral Pulse Oximetry (%) 96 Oxygen Delivery Method Room Air Intake Visit Reasons: 6 months f/up Accompanied by: Self / Same As Patient Allergies Penicillins (PENICILLINS) Allergy (Severe, Verified 05/22/25 08:16) NAUSEA & VOMITING bee pollen (BEE STINGS) Allergy (Unknown, Verified 05/22/25 08:16) UNKNOWN penicillamine Allergy (Unknown, Verified 05/22/25 08:16) unknown Medication List - Last Reconciled 05/22/25 by Buck Ling, ACID RECOVERY OPERATOR- atenolol 50 mg PO DAILY B-complex with vitamin C 1 tab PO DAILY bisacodyl 5 mg PO BID bupropion HCl XL 450 mg PO QAM 90 days buspirone 10 mg PO BID 90 days cetirizine (Zyrtec) 10 mg PO DAILY PRN doxepin 10 mg PO BEDTIME hydrochlorothiazide 25 mg PO QAM 90 days lidocaine 5% 1 patch topical DAILY losartan 50 mg PO BID 90 days meloxicam 7.5 mg PO DAILY 30 days peg 3350-electrolytes 236-22.74-6.74 -5.86 gram 240 mL PO Q10M rosuvastatin 10 mg PO DAILY 90 days simethicone (Gas Relief (simethicone)) 180 mg PO TID PRN simethicone (Gas Relief (simethicone)) 125 mg PO ONCE tizanidine 2 mg PO BID PRN 30 days Tobacco use date assessed: 05/22/25 Dental Screening Dental Screen Date: 05/22/25 Did you have a dental visit in the last 12 months?: No Did you have a dental problem in the last 6 months where you did not have access to dental care?: No Was dental information given to patient?: Patient has dentist HPI 6 months f/up HPI Details Chief Complaint The patient presents for a follow-up visit for dyslipidemia. History of Present Illness The patient is a 50 year old male presenting with a follow-up for dyslipidemia, for which he is currently taking rosuvastatin 10 mg. 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 This condition is thought to be related to sleep apnea, and while a previous referral for a sleep study was made, ophthalmology has also re-referred him for one, which will be scheduled in the future. The patient denies chest pain, shortness of breath, and headache but does report blurred vision. Socially, he is actively losing weight. Social History - Weight management: The patient is acti vely losing weight. Health Maintenance - The patient will undergo lab testing t o reassess his lipids. - A follow-up visit is scheduled in six months for a full physical. - The patient is actively losing weight. Review of Systems - Eyes: Reports blurred vision and a bli nd spot in the lower aspect of his right eye visual field. - Cardiovascular: Denies chest pain. - Respiratory: Denies shortness of breat h. - Neurological: Denies headache. Physical Exam General: Cooperative, healthy appearing, comfortable, no acute distress and well developed, obese Orientation: Patient oriented x3 Limitations: No limitations Head: Normal to inspection Ears: Hearing grossly normal bilaterally Nose: Normal external nose present Face and sinus: Normal facial exam Eyes: Appearance normal, both eyes and all related structures, except for a spot of blindness in the right eye lower aspect due to non-arteritic anterior ischemic optic neuropathy Neck: Normal visual inspection and Yes full ROM Respiratory: Normal respiratory effort and able to speak in complete sentences. Clear to auscultation bilaterally Cardiovascular: Regular rate and rhythm. Normal S1 and S2 GI: Normal to inspection. Soft to palpation and nontender Neuro: Patient oriented x3 Extremities: Normal to inspection Results Plan 1. Dyslipidemia The patient is on rosuvastatin 10 mg for dyslipidemia. Labs will be drawn today to reassess his lipid levels. Follow-up is scheduled in six months for a full physical. 2. Non-Arteritic Anterior Ischemic Optic Neuropathy The patient has a recent diagnosis of non-arteritic anterior ischemic optic neuropathy, which is thought to be related to sleep apnea. He has been re- referred by ophthalmology for a sleep study, which will be scheduled in the future. 3. Weight Management The patient is actively losing weight, which is encouraged. Discussion Notes I reviewed the patient's ongoing management for dyslipidemia and his new d iagnosis of non-arteritic anterior ischemic optic neuropathy, which is likely related to sleep apnea. I confirmed that he has been re-referred for a sleep study by ophthalmology and will schedule it. I encouraged his continued weight loss efforts and ordered labs to check his lipid levels. We will follow up in six months for a complete physical examination. Patient Instructions - Continue taking Rosuvastatin 10 mg as prescribed. - Please get your blood drawn today to c heck your cholesterol levels. - Schedule the sleep study that was john mmended by your eye doctor. - Continue your successful efforts with weight loss. - Schedule a follow-up appointment for a full physical in six months. [facility], LAT[facility] Medical History Non-arteritic anterior ischemic optic neuropathy Dysphagia Tubular adenoma of colon Acid reflux Generalized anxiety disorder Major depressive disorder, recurrent episode with anxious distress HTN (hypertension) Compression fracture of L2 Anxiety Surgical History Hx of appendectomy Family History Mother Mental health disorder Father Colon cancer, Onset Age: 66 Social History Housing: House Alcohol intake: never Patient Tobacco Use Status: Current someday Tobacco user Tobacco use type: Cigar e-Cigarette/Vaping Use: Never Used Second Hand Smoke Exposure: Yes Current occupational status: unemployed Cognitive needs: No Hearing needs: No Vision needs: No Questionnaire Thrive Questionnaire Date Thrive assessed: 10/24/24 I am a: Patient What is your living situation today?: I have a steady place to live Within the past 12 months, did the food you bought not last and you didn't have the money to get more?: Never true Within the past 12 months, did you worry whether your food would run out before you got money to buy more?: Never true Do you have trouble paying for medicines?: No Do you have trouble getting transportation to medical appointments?: No Do you have trouble paying your heating and electricity bill?: No Do you have trouble taking care of your child, family member or friend?: No Do you have trouble with day-to-day activities such as bathing, preparing meals, shopping, managing finances, etc.?: No Are you currently unemployed and looking for a job?: No Are you interested in more education?: No Please select the resources that you would like help with: None Currently or been in a relationship where the following occur: No concerns reported THRIVE Score: 0 JAH-7 AMB Questionnaire JAH-7 Date JAH - 7 assessed: 10/24/24 Source: Developed by Drs. David Dow, Shasha Morel, Ramon Willis and colleagues, with an educational shane from [email or web address]. Physical exam (Primary Care) Vital Signs: Last Vital Signs Temp 98.9 F 05/22/25 08:11 Pulse 75 05/22/25 08:11 Resp 16 05/22/25 08:11 BP 120/78 05/22/25 08:11 Pulse Ox 96 05/22/25 08:11 Oxygen Delivery Method Room Air 05/22/25 08:11 BMI result Body Mass Index 36.6 Tobacco/Smoking Status: Tobacco use Status Tobacco use date assessed 05/22/25 05/22/25 08:20 Patient Tobacco Use Status Current someday Tobacco 05/22/25 08:11 Tobacco use type Cigar 05/22/25 08:11 e-Cigarette/Vaping Use Never Used 05/22/25 08:11 Thrive Assessment: Date of Thrive Assessment Date Thrive assessed 10/24/24 05/22/25 08:11 Currently or been in a relationship where the following occur: No concerns reported Coding Level of Care Code Est Pt Level 3 (97408) Diagnoses Non-arteritic anterior ischemic optic neuropathy H47.019 Dyslipidemia E78.5 Screening PSA (prostate specific antigen) Z12.5 Assessment & Plan Assessment & Plan (1) Non-arteritic anterior ischemic optic neuropathy: Comment: blind spot, right eye, lower right Code(s): H47.019 - Ischemic optic neuropathy, unspecified eye Category: Medical (2) Dyslipidemia: Code(s): E78.5 - Hyperlipidemia, unspecified Category: Medical (3) Screening PSA (prostate specific antigen): Code(s): Z12.5 - Encounter for screening for malignant neoplasm of prostate Category: Medical Plan . Orders: Orders Complete Blood Count Auto Diff Today E78.5 - Hyperlipidemia, unspecified TSH reflex Free T4 Today E78.5 - Hyperlipidemia, unspecified UA CC w/rflx Micro + Cult Today E78.5 - Hyperlipidemia, unspecified Comprehensive [place]. Panel Fast Today E78.5 - Hyperlipidemia, unspecified Lipid Panel Today E78.5 - Hyperlipidemia, unspecified Prostate Specific Antigen Scr Today Z12.5 - Encounter for screening for malignant neoplasm of prostate
== END 2025-05-22 08:46 | disposition home or self-care (01) ==
PROVIDERS: PCP Nurse Practitioner Family; Visit Provider Nurse Practitioner Family
DX: H47.019 Ischemic optic neuropathy, unspecified eye (principal); E78.5 Hyperlipidemia, unspecified; Z12.5 Encounter for screening for malignant neoplasm of prostate

== ENCOUNTER 2025-06-30 07:42 | Day surgery (SDC) | payer OTHER, SELFPAY ==
--- OUTSIDE RECORDS SUMMARY | 2025-04-05 12:04 | XMS_ITS ---
Author Organization [facility] Address [address] [place] [address] Care Team Providers Care Beam Press Operator Name Role Phone Buck Guzman Primary Care Provider Unav ailable Eriberto Louis Unavailable [phone] Black, Rhea Unavailable [phone] REASON FOR VISIT Update Demographics - Personal Info Encounters Encounter Location Date Provider Diagnosis [facility] [address] [place] [address] 04/05/2025 Rhea Black Plan Of Treatment No Information Progress Notes * Ashok KNAPP ADOB:1975 (50 yo M)Acc No.[id number]:04/05/2025 Patient: Salvador Ashok CALVILLO :1975 A ge:50 Y S ex:Male Address:[address] [place] [address] Subjective: * Chief Complaints: * U pdate Demographics - Personal Info * Medical History: * Surgical History: * Hospitalization/Major Diagno stic Procedure: * Medications: Objective: * Vitals: * Physical Examination: Assessment: Plan: * Treatment: * Procedure Codes: * * Date:
--- OUTSIDE RECORDS SUMMARY | 2025-04-17 08:00 | XMS_ITS ---
Author Organization [facility] Address [address] [place] [address] Care Team Providers Care Monkey Breeder Name Role Phone Buck Guzman Primary Care Provider Unav ailable Heriberto Eriberto Unavailable [phone] Rhea Del Rio Unavailable [phone] Allergies Allergen (clinical drug ingredient) Drug/Non Drug Allergy documented on EMR Reaction Allergy Type Onset Date Status Substance with penicillin structure and antibacterial mechanism of action (substance) Penicillins diarrhea, itchiness Drug Allergy Active REASON FOR VISIT Dr Dumont Medications Medication SIG (Take, Route, Frequency, Duration) Notes Start Date End Date Status hydroCHLOROthiazide 25 MG 1 tablet in th e morning Orally Once a day Active Atenolol 50 MG 1 tablet Orally Once a day Active Meloxicam 7.5 MG 1 tablet Orally Once a day Active busPIRone HCl 10 MG 1 tablet Orally Twic e a day Active buPROPion HCl ER (XL) 450 MG 1 tablet in the morning Orally Once a day Active Losartan Potassium 50 MG 1 tablet Orally Once a day Active Rosuvastatin Calcium 10 MG 1 tablet Oral ly Once a day Active Encounters Encounter Location Date Provider Diagnosis [facility] [address] [place] [address] 04/17/2025 Rhea Del Rio Plan Of Treatment No Information Progress Notes * Ashok KNAPP ADOB:1975 (50 yo M)Acc No.[id number]:04/17/2025 Progress Notes Patient: Salvador Ashok CALVILLO Provider: Winter Del Rio DPM :1975 A ge:50 Y S ex:Male Date:04/17/2025 Address:[address] [place], [place] [id number] Pcp:Buck Ling NP-VERONICA Subjective: * Chief Complaints: * [address] Dumont. * ROS: G eneral/Constitutional: Nausea d enies. V omiting d enies. H awais Thirst d enies. L oss appetite d enies. C hills d enies. F atigue d enies.?Fever d enies. N ight Sweats d enies. U nexplained weight loss d enies. U nexplained weight gain d enies. H EENTM: Dentures d enies. D izziness d enies. G lasses/contacts a dmits. R etinopathy d enies. B lurred/double vision d enies. T MJ?denies. D ischarge/drainage d enies. I mplants d enies. S ore throat d enies. D ental implants d enies. H abhijeet of hearing d enies. D ifficulty chewing/swallowing/speaking d enies. N ose bleeds d enies. S ore mouth d enies. ? R espiratory: On Oxygen d enies. P neumonia/pleurisy d enies.?Bronchitis d enies. E mphysema d enies. C oughing d enies. C ough blood?denies. S hortness of breath d enies. W heezing d enies. C ardiovascular: Pacemaker d enies. M GROVE WORKER d enies. W PW d enies. C HF d enies. H eart attack d enies. S eptal defect d enies. R apid beat d enies. C hest pain d enies. A trial Fib. d enies. M urmur/Palpitations d enies. G astrointestinal: Hemorrhoids d enies. S tomach/Abdominal pain d enies. D ark blood stool d enies. I rritable bowel d enies. C onstipation d enies. D iarrhea d enies. H ematology: Swelling d enies. C lots d enies. V aricose Veins d enies. B ruising d enies. B leeding problem d enies. G enitourinary: Blood urine d enies. F requent/Painfu/urination/bladder control d enies. K idney stones d enies. I nfection (UTI) d enies. N ephropathy d enies. s ex trans dis (STD) d enies. P rostate d enies. M usculoskeletal: Hammertoes d enies. B unions d enies. B ack Pain a dmits. M uscle Cramps/ Resting d enies. M uscle cramps / walking d enies.?Generalized aches and pains d enies. W eakness d enies. I nteg.: Bryant d enies. S cars d enies. C orns/calluses?denies. I ngrown nails a dmits. P ainful nails d enies. O pen Sores d enies. R ashes d enies. N eurologic: Difficulty sleeping d enies. B rain disorder d enies. N umbness d enies. B alance trouble d enies. C onfusion d enies. F ainting/blackouts d enies. T ingling d enies. T remors d enies. * Medical History: A nxiety, Back,Hip,and Knee pain, Broken bones, High Blood Pressure, Chicken pox. * Surgical History: a ppendectomy 04/2017, wisdom teeth extraction 1991. * Family History: M other: , diagnosed with Family history of arthritis. F ather: , diagnosed with Other malignant neoplasm of unspecified site, Unspecified heart disease, Family history of arthritis. * Social History: M iscellaneous: C affeine: no. Marital status: Single. 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 * Medications: T aking Meloxicam 7.5 MG Tablet 1 tablet Orally Once a day , Taking busPIRone HCl 10 MG Tablet 1 tablet Orally Twice a day , Taking buPROPion HCl ER (XL) 450 MG Tablet Extended Release 24 Hour 1 tablet in the morning Orally Once a day , Taking Rosuvastatin Calcium 10 MG Tablet 1 tablet Orally Once a day , Taking Losartan Potassium 50 MG Tablet 1 tablet Orally Once a day , Taking hydroCHLOROthiazide 25 MG Tablet 1 tablet in the morning Orally Once a day , Taking Atenolol 50 MG Tablet 1 tablet Orally Once a day * Allergies: P enicillins: diarrhea, itchiness. Objective: * Vitals: Assessment: Plan: * Treatment: * Images: * The named appointment provid er may or may not be the originator of this progress note, and it is not deemed complete until electronically signed by the appointment provider. Sign off status: Pending * Provider: Winter Del Rio DPM Date: 0 04/17/2025 Generated for Karthik omalley/Kadi/Jael on: 08/07/2024 08:13 AM EST
--- OUTSIDE RECORDS SUMMARY | 2025-06-07 08:13 | XMS_ITS | Patient Health Record ---
Author Organization 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 Vital Signs Blood pressure diastolic 80 mm Hg 04/18/2025 Height 5ft 9in in 04/18/2025 Blood pressure systolic 120 mm Hg 04/18/2025 Weight 240 lbs 04/18/2025 BMI 35.44 kg/m2 04/18/2025 Encounters Encounter Location Date Provider Diagnosis [facility] [address] [address] 04/18/2025 Eriberto Heriberto Pain in left foot M79.672 ; Plantar fibromatosis M72.2 and 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.22 [facility] [address] [address] 04/24/2025 Eriberto Heriberto Plantar fibromatosis M72.2 and 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.22 [facility] [address] 04/05/2025 Rhea Del Rio Assessments Encounter Date [...] Date Coverage End Date Inderjit [address] [place] [address] [id number] Ashok Vargas Self - patient is the insured Medical (General) History Medical History History ICD Code Anxiety Back,Hip,and Knee pain Broken bones High Blood Pressure Chicken pox Hypercholesterolemia Surgical History Surgery Date(Month/Year) appendectomy 04/2017 wisdom teeth extraction 1992
--- OUTSIDE RECORDS SUMMARY | 2025-06-07 08:13 | XMS_ITS | Clinical Summary ---
Author Organization [facility] Address [address] [place], [place] [id number] Phone Care Team Providers Care Cyber Incident Handler Name Role Phone Buck Ling NP Primary [...] topic Medical Devices Not on file Insurance [employer] DIRECT [employer] DIRECT [employer] PLANS DIRECT [employer] DIRECT DIRECT PLANS DIRECT Care Teams Cyber Incident Handler Relationship Specialty Start Date End Date Buck Ling NP [address] [place] [address] PCP - General Nurse Practitioner 01/26/23 Additional Source Comments The information contained in this document represents components of the legal health record. It is not the complete legal health record.[facility]
--- NOTE | 2025-06-27 14:45 | HO.ANESPROP2 ---
Documented by User: Noris Edwards NP 06/27/25 14:48 HPI - Anesthesia Eval Consult details Narrative: 50yo M for Upper Endoscopy and Colonoscopy [facility] Active Problems Active Problems: All Active Problems Screening PSA (prostate specific antigen) (Acute) Non-arteritic anterior ischemic optic neuropathy (Acute) Dysphagia (Acute) Tubular adenoma of colon (Acute) Acid reflux (Acute) Fatty liver (Acute) Elevated liver enzymes (Acute) Snores (Acute) Eye discomfort (Acute) Plantar fasciitis of left foot (Acute) Left foot pain (Acute) Screening for colon cancer (Acute) DDD (degenerative disc disease), lumbar (Acute) Flat feet, bilateral (Acute) Lumbar back pain (Acute) Dyslipidemia (Acute) Generalized anxiety disorder (Acute) Major depressive disorder, recurrent episode with anxious distress (Acute) Tinnitus, right ear (Acute) Dyslipidemia (Acute) Anxiety (Acute) Physical exam (Acute) Microhematuria (Acute) HTN (hypertension) (Acute) Paraspinal muscle spasm (Acute) Past Medical History Medical History Dyslipidemia DDD (degenerative disc disease), lumbar Back pain Non-arteritic anterior ischemic optic neuropathy Dysphagia Tubular adenoma of colon Acid reflux Generalized anxiety disorder Major depressive disorder, recurrent episode with anxious distress HTN (hypertension) Compression fracture of L2 Anxiety Family History Family History Mother Mental health disorder Father Colon cancer, Onset Age: 66 Surgical History Surgical History History of tonsillectomy and adenoidectomy History of esophagogastroduodenoscopy (EGD) H/O colonoscopy Hx of appendectomy Social History Social History Housing: House Alcohol intake: never Patient Tobacco Use Status: Current someday Tobacco user Tobacco use type: Cigar e-Cigarette/Vaping Use: Never Used Second Hand Smoke Exposure: Yes Advance Directives: No Advance Directives Information Provided: Yes Current occupational status: unemployed Cognitive needs: No Hearing needs: No Vision needs: No Meds Allergies Allergy/AdvReac Type Severity Reaction Status Date / Time Penicillins (PENICILLINS) Allergy Severe NAUSEA & Verified 06/30/25 08:06 VOMITING bee pollen (BEE STINGS) Allergy Unknown UNKNOWN Verified 06/30/25 08:06 Home Medications ?Medication ?Instructions ?Recorded ?Confirmed ?Last Taken ?Type cetirizine 10 mg tablet (Zyrtec) 10 mg PO DAILY PRN Allergy Symptoms 10/03/20 06/30/25 Unknown History B-complex with vitamin C 1 tab PO DAILY 03/24/25 06/30/25 Unknown History Assessment and Plan Assessment Anesthesia Assessment: Chart Reviewed Documented by User: Vikki Hurst MD 06/30/25 08:09 [facility] Past Medical History Medical History Dyslipidemia DDD (degenerative disc disease), lumbar Back pain Non-arteritic anterior ischemic optic neuropathy Dysphagia Tubular adenoma of colon Acid reflux Generalized anxiety disorder Major depressive disorder, recurrent episode with anxious distress HTN (hypertension) Compression fracture of L2 Anxiety Family History Family History Mother Mental health disorder Father Colon cancer, Onset Age: 66 Family history of problems with anesthesia: No Surgical History Surgical History History of tonsillectomy and adenoidectomy History of esophagogastroduodenoscopy (EGD) H/O colonoscopy Hx of appendectomy History of Problems with Anesthesia: No Social History Social History Housing: House Alcohol intake: never Patient Tobacco Use Status: Current someday Tobacco user Tobacco use type: Cigar e-Cigarette/Vaping Use: Never Used Second Hand Smoke Exposure: Yes Advance Directives: No Advance Directives Information Provided: Yes Current occupational status: unemployed Cognitive needs: No Hearing needs: No Vision needs: No Meds Allergies Allergy/AdvReac Type Severity Reaction Status Date / Time Penicillins (PENICILLINS) Allergy Severe NAUSEA & Verified 06/30/25 08:06 VOMITING bee pollen (BEE STINGS) Allergy Unknown UNKNOWN Verified 06/30/25 08:06 Home Medications ?Medication ?Instructions ?Recorded ?Confirmed ?Last Taken ?Type cetirizine 10 mg tablet (Zyrtec) 10 mg PO DAILY PRN Allergy Symptoms 10/03/20 06/30/25 Unknown History B-complex with vitamin C 1 tab PO DAILY 03/24/25 06/30/25 Unknown History Exam Airway Mallampati Class: II TM Dist: >3cm Neck ROM: Full Heart: rrr Lungs: cta Assessment and Plan Assessment Anesthesia Assessment: Anesthesia Plan Discussed Final Anesthetic Review Family History of Problems with Anesthesia: No History of Problems with Anesthesia: No NPO: Yes ASA Class: III Final Preanesthetic Review: No Changes in Pt Med Stat, Meds/Allgs Chart Reviewed, Consent Obtained/Reviewed and Anes Risks/Benef Reviewed Patient Risk: Intermediate Procedure Risk: Low Anesthetic Plan Anesthetic Plan: MAC: Disposition: Standard PACU
[2025-06-28 12:54] VITALS: BMI 36.6
--- NOTE | 2025-06-30 07:26 | MHC.SHP ---
Pre-Procedural Eval Section A - 24 Hr Update-Section A only Date of Service: 06/30/25 The patient is an INPATIENT: No The patient has been examined within 24 hours of the surgical procedure. The History & Physical has been completed within 30 days and I have reviewed it.: No Section B - Complete if H&P > 30 days Chief Complaint: Surveillance for colon polyps, GERD, dysphagia Relevant Family History (Specify if Yes): No Relevant Social History: Tobacco Use Present Medications: see Short Stay Collaborative assessment Medical History: Significant History (Dysphagia Tubular adenoma of colon Acid reflux Generalized anxiety disorder Major depressive disorder, recurrent episode with anxious distress HTN (hypertension) Compression fracture of L2 Anxiety) History of Previous Operations: Relevant previous surgery/procedure and date(s) (History of appendectomy) Allergies: Allergies Allergy/AdvReac Type Severity Reaction Status Date / Time Penicillins (PENICILLINS) Allergy Severe NAUSEA & Verified 05/22/25 08:16 VOMITING bee pollen (BEE STINGS) Allergy Unknown UNKNOWN Verified 05/22/25 08:16 Review of Systems Sugical H&P ROS: Negative: Constitution, Cardiovascular, Respiratory and Gastrointestinal Exam Surgical H&P Exam: Normal: Heart, Normal: Lungs, Normal: Extremities and Normal: Abdomen Plan Diagnosis/Plan: Unchanged I have reviewed the history and physical and performed a pertinent physical examination on my patient. No changes have occurred unless specified. Time Spent With Patient Time: Total time managing care of this patient today ____ minutes.
[2025-06-30 08:07] VITALS: BMI 35.0
[2025-06-30 08:15] VITALS: BP 143/92; PULSE 99; RESP 15; TEMP 36.6; O2SAT 97
[2025-06-30] MEDS: Lactated Ringers 1,000 ML 100 ML IVCONT (08:29)
--- NOTE | 2025-06-30 09:17 | P.OPN-COLO_ITS ---
Colonoscopy Operative Note Operative Note Date of Service: 06/30/25 Narrative: FLEXIBLE TRANSORAL UPPER GASTROINTESTINAL ENDOSCOPY WITH BIOPSIES AND ESOPHAGEAL BALLOON DILATION AND COLONOSCOPY TILL CECUM WITH SNARE POLYPECTOMY Pre-op diagnosis: Surveillance for colon polyps, GERD, dysphagia Post-op diagnosis: GERD, dysphagia, Gastritis, Colon Polyps, Diverticulosis, hemorrhoids Specimens and Sources: : a- gastric antrum bxs r/o h pylori ?b- distal esophagus bxs r/o eoe ?c- mid esophagus bxs r/o eoe ?d- proximal esophagus bxs r/o eoe ?e- ascending colon polyp ?f- sigmoid colon polyp Pre-operative diagnosis: : Surveillance for colon polyps, GERD, dysphagia Post-operative Diagnosis: : gastritis, gerd, dysphagia, colon polyps, diverticulosis, hemorrhoids Endoscopist:? Tony Kellogg MD Anesthesia:?[facility] Consent: Indications for the procedure and potential complications of bleeding, perforation, reaction to medications and missed diagnosis were discussed with the patient and informed consent was obtained. Instrument: Olympus GIF H 190 mid size upper endoscope Monitoring: Vital signs and clinical assessment, continuous EKG monitoring, Pulse oximetry, Carbon Dioxide monitoring and blood pressure monitoring were done throughout the procedure. Procedure: The patient was placed in the left lateral decubitis position and pre-procedure medications were administered and a bite block was placed. The endoscope was inserted into the mouth and advanced under direct vision to the third part of duodenum. A careful inspection was made as the upper endoscope was withdrawn including a retroflexed examination of the proximal stomach; Findings and interventions are described below. Findings: Larynx: Normal Esophagus: GE junction at 40 cms. No esophagitis or Cagle's. Mildly tortuous esophagus without stricture or ring. Empiric balloon dilation was performed with a 20 mm CRE balloon for 60 seconds. Biopsies were obtained from proximal, mid and distal esophagus to rule out EOE Stomach: Mild antral erythema - biopsies were obtained from the antrum. Grade 2 flap valve on retroflexed examination of the cardia. Duodenum: Normal bulb and descending duodenum Intervention: Biopsies as noted above COLONOSCOPY PROCEDURE NOTE Instrument: Olympus CF H 190 L variable stiffness adult colonoscope Monitoring: Vital signs and clinical assessment, intermittent blood pressure monitoring, continuous EKG monitoring, Pulse oximetry and Carbon Dioxide monitoring were done throughout the procedure. Please see anesthesia flowsheet. Colon withdrawl time was 14 minutes. Procedure: The patient was placed in the left lateral decubitis position and pre-procedure medications were administered. After a digital rectal examination of the ano-rectum, the video colonoscope was inserted into the rectum and advanced through the colon to the cecum. The colonoscope was slowly withdrawn in a retrograde panoramic fashion and the colon mucosa was carefully examined including a retroflexed view of the rectum. Findings and interventions are described below. Procedure Difficulty: without difficulty Findings: Terminal Ileum: Not evaluated Cecum: Normal Ascending Colon: A 3-4 mm sessile polyp in the distal ascending colon - removed with a cold snare Transverse Colon: Normal Descending Colon: Normal Sigmoid Colon: A 5-6 mm sessile polyp - removed with a cold snare. Moderate diverticulosis Rectum: Normal Ano-rectum: Moderate internal hemorrhoids Colon preparation: Excellent, after some irrigation. [place] Bowel Preparation Scale Right colon; 3 Transverse colon: 3 Left colon; 3 (0 = Unprepared colon segment with mucosa not seen due to solid stool that cannot be cleared. 1 = Portion of mucosa of the colon segment seen, but other areas of the colon segment not well seen due to staining, residual stool and/or opaque liquid. 2 = Minor amount of residual staining, small fragments of stool and/or opaque liquid, but mucosa of colon segment seen well. 3 = Entire mucosa of colon segment seen well with no residual staining, small fragments of stool or opaque liquid) Impression and Post Procedure Diagnosis: Endoscopy Findings: ESOPHAGUS: [] STOMACH: [] DUODENUM: [] Colonoscopy Findings: Two small polyps were removed Moderate diverticulosis seen in the left colon Moderate hemorrhoids on retroflexed exam. Plan: Pt has a FU appointment on 07/06/25 with Denise Deleon NP Repeat Colonoscopy in 5 years if polyps are adenomatous and due to history of adenomatous colon polyps. A summary of above findings and relevant handouts were given to the patient.
[2025-06-30 09:41] VITALS: BP 110/76; PULSE 87; RESP 14; TEMP 36.3; O2SAT 95
[2025-06-30 09:56] VITALS: BP 122/80; PULSE 84; RESP 14; TEMP 36.1; O2SAT 97
== END 2025-06-30 10:08 | disposition home or self-care (01) ==
PROVIDERS: PCP Nurse Practitioner Family; Visit Provider Internal Medicine Gastroenterology
PROC: (CPT 45385; principal; 2025-06-30 09:10)
DX: Z12.11 Encounter for screening for malignant neoplasm of colon (principal); R13.10 Dysphagia, unspecified; K21.9 Gastro-esophageal reflux disease without esophagitis; Z86.0101 Personal history of adenomatous and serrated colon polyps; Z80.0 Family history of malignant neoplasm of digestive organs; K57.30 Diverticulosis of large intestine without perforation or abscess without bleeding; K64.8 Other hemorrhoids; K63.5 Polyp of colon; K29.70 Gastritis, unspecified, without bleeding
CPT/HCPCS: 45385; 43239; 43249; 88305; 88342; C1726; J2003; J2250; J2704

== ENCOUNTER 2025-07-06 14:19 | Outpatient (AMB) | payer OTHER, SELFPAY ==
--- OUTSIDE RECORDS SUMMARY | 2025-04-05 12:04 | XMS_ITS ---
Author Organization [facility] Address [address] [place] [address] Care Team Providers Care Laborer Airport Maintenance Name Role Phone Buck Guzman Primary Care Provider Unav ailable Eriberto Louis Unavailable [phone] Black, Rhea Unavailable [phone] REASON FOR VISIT Update Demographics - Personal Info Encounters Encounter Location Date Provider Diagnosis [facility] [address] [place] [address] 04/05/2025 Rhea Black Plan Of Treatment No Information Progress Notes * Ashok KNAPP ADOB:1975 (50 yo M)Acc No.[id number]:04/05/2025 Patient: Salvador Ashok CALVILLO :1975 A ge:50 Y S ex:Male Address:[address] [place] [address] Subjective: * Chief Complaints: * U pdate Demographics - Personal Info * Medical History: * Surgical History: * Hospitalization/Major Diagno stic Procedure: * Medications: Objective: * Vitals: * Physical Examination: Assessment: Plan: * Treatment: * Procedure Codes: * * Date:
--- OUTSIDE RECORDS SUMMARY | 2025-04-17 08:00 | XMS_ITS ---
Author Organization [facility] Address [address] [place] [address] Care Team Providers Care Radio Communications Superintendent Name Role Phone Buck Guzman Primary Care Provider Unav ailable Heriberto Eriberto Unavailable [phone] Rhea Del Rio Unavailable [phone] Allergies Allergen (clinical drug ingredient) Drug/Non Drug [...] Active Encounters Encounter Location Date Provider Diagnosis [facility] [address] [place] [address] 04/17/2025 Rhea Del Rio Plan Of Treatment No Information Progress Notes * Ashok KNAPP ADOB:1975 (50 yo M)Acc No.[id number]:04/17/2025 Progress Notes Patient: Salvador Ashok CALVILLO Provider: Winter Del Rio DPM :1975 A ge:50 Y S ex:Male Date:04/17/2025 Address:[address] [place], [place] [id number] Pcp:Buck Ling NP-VERONICA Subjective: * Chief Complaints: [...] enies. C ardiovascular: Pacemaker d enies. M FURNACE LINER d enies. W PW d enies. C [...] Single. 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 * Medications: T aking Meloxicam 7.5 [...] 0 04/17/2025 Generated for Karthik omalley/Kadi/Jael on: 09/06/2024 06:31 PM EST
--- NOTE | 2025-07-06 14:25 | A.OFFVIS_ITS ---
Vital Signs 07/06/25 14:29 Height 5 ft 9 in Weight 237 lb BMI 35.0 BP 118/80 Blood Pressure Location Rt brachial Position Sitting Pulse 78 Pulse Source Pulse Oximeter Pulse Oximetry (%) 98 Oxygen Delivery Method Room Air Intake Visit Reasons: s/p egd, colo Intake Note: Patient follow up for acid reflux and EGD/Colonoscopy results. Patient cc: Pt denies any current GI sx or concerns. Division Order Analyst Required: No Accompanied by: Self / Same As Patient Allergies Penicillins (PENICILLINS) Allergy (Severe, Verified 07/06/25 14:25) NAUSEA & VOMITING bee pollen (BEE STINGS) Allergy (Unknown, Verified 07/06/25 14:25) UNKNOWN HPI HPI s/p egd, colo: Details: Patient is a 50-year-old male with PMH of depression, GERD, hypertension. Referred by PCP for pre colonoscopy screening Follow-up visit to review the results of his recent upper endoscopy and colonoscopy. The upper endoscopy was performed due to symptoms of reflux, although he notes his reflux symptoms have improved with decreased stress levels and he is not currently taking medication for it. He has a history of dysphagia and reports some difficulty swallowing, which he attributes to his soft palate and uvula from a prior tonsillectomy and adenoidectomy at age 16. He states it feels like it is in the way but does not cause choking. He also has a history of severe sleep apnea and has seen an ENT specialist, but a sleep study was denied by his insurance. Regarding his screening colonoscopy, he has a history of prior precancerous polyps. The recent colonoscopy was complete to the cecum with an excellent preparation. Two polyps were removed, one identified as fat and the other was not specified, and there was no evidence of cancer. Other findings included internal hemorrhoids and diverticulosis. [facility] Medical History (Updated 07/06/25 @ 15:12 by Denise Deleon CNP) Diverticulosis Colon polyp Dyslipidemia DDD (degenerative disc disease), lumbar Back pain Non-arteritic anterior ischemic optic neuropathy Dysphagia Tubular adenoma of colon Acid reflux Generalized anxiety disorder Major depressive disorder, recurrent episode with anxious distress HTN (hypertension) Compression fracture of L2 Anxiety Surgical History History of tonsillectomy and adenoidectomy History of esophagogastroduodenoscopy (EGD) H/O colonoscopy Hx of appendectomy Family History Mother Mental health disorder Father Colon cancer, Onset Age: 66 Social History Housing: House Alcohol intake: never Patient Tobacco Use Status: Current someday Tobacco user Tobacco use type: Cigar e-Cigarette/Vaping Use: Never Used Second Hand Smoke Exposure: Yes Current occupational status: unemployed Cognitive needs: No Hearing needs: No Vision needs: No Review of Systems Const Reports as per HPI ENT Reports as per HPI Card Reports as per HPI Resp Reports as per HPI GI Reports as per HPI Reports as per HPI Physical Exam Vital Signs: Last Vital Signs Pulse 78 07/06/25 14:29 BP 118/80 07/06/25 14:29 Pulse Ox 98 07/06/25 14:29 Oxygen Delivery Method Room Air 07/06/25 14:29 BMI result Body Mass Index 35.0 Const General: healthy appearing, no acute distress and well developed Nutritional Appearance: average body habitus Orientation/consciousness: patient oriented x3 HEENT Head: Yes normal to inspection, Yes normocephalic and Yes atraumatic Face and sinus: Yes normal facial exam Eyes General: appearance normal, both eyes and all related structures Neck Neck: Yes normal visual inspection Resp Effort & Inspection: normal respiratory effort, able to speak in complete sentences, no tracheal deviation and symmetric chest movement Cardio Jugular venous distension: no JVD Neuro General: patient oriented x3 Gait exam (Neuro): Normal gait present Psych Appearance: grossly normal Mental Status: mental status grossly normal Speech and movement: Normal speech and movement present Affect: normal affect Attitude: cooperative Thought process: Normal thought process present Thought content: Normal thought content present Insight: Good insight present (Psych) Judgement: Good judgement present (Psych) Results Reviewed Results Reviewed: Operative Note Date of Service: 06/30/25 Narrative: FLEXIBLE TRANSORAL UPPER GASTROINTESTINAL ENDOSCOPY WITH BIOPSIES AND ESOPHAGEAL BALLOON DILATION AND COLONOSCOPY TILL CECUM WITH SNARE POLYPECTOMY Pre-op diagnosis: Surveillance for colon polyps, GERD, dysphagia Post-op diagnosis: GERD, dysphagia, Gastritis, Colon Polyps, Diverticulosis, hemorrhoids Specimens and Sources: : a- gastric antrum bxs r/o h pylori b- distal esophagus bxs r/o eoe c- mid esophagus bxs r/o eoe d- proximal esophagus bxs r/o eoe e- ascending colon polyp f- sigmoid colon polyp Pre-operative diagnosis: : Surveillance for colon polyps, GERD, dysphagia Post-operative Diagnosis: : gastritis, gerd, dysphagia, colon polyps, diverticulosis, hemorrhoids Endoscopist: Tony Kellogg MD Anesthesia: MAC UPPER ENDOSCOPY Consent: Indications for the procedure and potential complications of bleeding, perforation, reaction to medications and missed diagnosis were discussed with the patient and informed consent was obtained. Instrument: Olympus GIF H 190 mid size upper endoscope Monitoring: Vital signs and clinical assessment, continuous EKG monitoring, Pulse oximetry, Carbon Dioxide monitoring and blood pressure monitoring were done throughout the procedure. Procedure: The patient was placed in the left lateral decubitis position and pre-procedure medications were administered and a bite block was placed. The endoscope was inserted into the mouth and advanced under direct vision to the third part of duodenum. A careful inspection was made as the upper endoscope was withdrawn including a retroflexed examination of the proximal stomach; Findings and interventions are described below. Findings: Larynx: Normal Esophagus: GE junction at 40 cms. No esophagitis or Cagle's. Mildly tortuous esophagus without stricture or ring. Empiric balloon dilation was performed with a 20 mm CRE balloon for 60 seconds. Biopsies were obtained from proximal, mid and distal esophagus to rule out EOE Stomach: Mild antral erythema - biopsies were obtained from the antrum. Grade 2 flap valve on retroflexed examination of the cardia. Duodenum: Normal bulb and descending duodenum Intervention: Biopsies as noted above COLONOSCOPY PROCEDURE NOTE Instrument: Olympus CF H 190 L variable stiffness adult colonoscope Monitoring: Vital signs and clinical assessment, intermittent blood pressure monitoring, continuous EKG monitoring, Pulse oximetry and Carbon Dioxide monitoring were done throughout the procedure. Please see anesthesia flowsheet. Colon withdrawl time was 14 minutes. Procedure: The patient was placed in the left lateral decubitis position and pre-procedure medications were administered. After a digital rectal examination of the ano-rectum, the video colonoscope was inserted into the rectum and advanced through the colon to the cecum. The colonoscope was slowly withdrawn in a retrograde panoramic fashion and the colon mucosa was carefully examined including a retroflexed view of the rectum. Findings and interventions are described below. Procedure Difficulty: without difficulty Findings: Terminal Ileum: Not evaluated Cecum: Normal Ascending Colon: A 3-4 mm sessile polyp in the distal ascending colon - removed with a cold snare Transverse Colon: Normal Descending Colon: Normal Sigmoid Colon: A 5-6 mm sessile polyp - removed with a cold snare. Moderate diverticulosis Rectum: Normal Ano-rectum: Moderate internal hemorrhoids Colon preparation: Excellent, after some irrigation. [place] Bowel Preparation Scale Right colon; 3 Transverse colon: 3 Left colon; 3 (0 = Unprepared colon segment with mucosa not seen due to solid stool that cannot be cleared. 1 = Portion of mucosa of the colon segment seen, but other areas of the colon segment not well seen due to staining, residual stool and/or opaque liquid. 2 = Minor amount of residual staining, small fragments of stool and/or opaque liquid, but mucosa of colon segment seen well. 3 = Entire mucosa of colon segment seen well with no residual staining, small fr agments of stool or opaque liquid) Impression and Post Procedure Diagnosis: Endoscopy Findings: ESOPHAGUS: [] STOMACH: [] DUODENUM: [] Colonoscopy Findings: Two small polyps were removed Moderate diverticulosis seen in the left colon Moderate hemorrhoids on retroflexed exam. Plan: Pt has a FU appointment on 07/06/25 with Denise Deleon NP Repeat Colonoscopy in 5 years if polyps are adenomatous and due to history of adenomatous colon polyps. A summary of above findings and relevant handouts were given to the patient. Assessment & Plan Assessment & Plan (1) Acid reflux: Comment: -06/30/25 EGD -gastritis, gerd, dysphagia. -04/05/19 EGD -Gastritis and GERD Code(s): K21.9 - Gastro-esophageal reflux disease without esophagitis Category: Medical Qualifiers: Esophagitis presence: without esophagitis Qualified Code(s): K21.9 - Gastro-esophageal reflux disease without esophagitis Plan: The patient's upper endoscopy showed inflammation of the stomach, confirming reflux and suggestive of dysphagia, and the patient confirms some difficulty swallowing, which he relates to his soft palate. - Further evaluation with a barium swallow was offered, but the patient declined additional workup at this time. - He is currently asymptomatic, reports improvement with stress reduction, and does not take medication for reflux. - No further workup or treatment is planned at this time. (2) Colon polyp: Comment: 06/30/25 colonoscopy complete with excellent prep after some [id number] mm lymphoid ( ascending), 5-6 mm, moderate diverticulosis (Sigmoid), diverticulosis, internal hemorrhoids. Recommendation for repeat in 5 years (2029). Code(s): K63.5 - Polyp of colon Category: Medical Qualifiers: Colon polyp type: unspecified Colon location: ascending Qualified Code(s): K63.5 - Polyp of colon Plan: The recent screening colonoscopy was complete with excellent prep, revealing two non-cancerous polyps that were removed. - Due to the patient's history of precancerous polyps and one of the recent polyps being of an unspecified type, continued surveillance is recommended. - Plan to repeat colonoscopy in 5 years, in 2030. - The patient will coordinate scheduling with his primary care provider and will not have routine follow-up with this office unless new issues arise. (3) Diverticulosis: Code(s): K57.90 - Diverticulosis of intestine, part unspecified, without perforation or abscess without bleeding Category: Medical Plan: The patient was informed of the incidental finding of diverticulosis on colonoscopy, which currently requires no treatment. - Educated on lifestyle modifications to prevent diverticulitis, including maintaining good fiber intake, adequate hydration with water, and consuming fermented foods for good bacteria. Plan Follow-up as needed Time: I spent a total of 20 minutes on the date of encounter which includes: Preparing to see the patient (reviewed previous documentation, test results and medical history) Performing a medically appropriate exam and/or evaluation Ordering medications, tests, and procedures Documenting clinical information in the health record Coding Level of Care Code Established Pt Est Pt Level 3 (60303) Patient Type Established Diagnoses Gastroesophageal reflux disease without esophagitis K21.9 Esophagitis presence: without esophagitis Polyp of ascending colon, unspecified type K63.5 Colon polyp type: unspecified Colon location: ascending Diverticulosis K57.90
[2025-07-06 14:29] VITALS: BP 118/80; PULSE 78; O2SAT 98; BMI 35.0
--- OUTSIDE RECORDS SUMMARY | 2025-07-06 18:31 | XMS_ITS | Patient Health Record ---
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 Vital Signs Blood pressure diastolic 80 mm Hg 04/18/2025 Height 5ft 9in in 04/18/2025 Blood pressure systolic 120 mm Hg 04/18/2025 Weight 240 lbs 04/18/2025 BMI 35.44 kg/m2 04/18/2025 Encounters Encounter Location Date Provider Diagnosis [facility] [address] [address] 04/18/2025 Eriberto Heriberto Pain in left foot M79.672 ; Plantar fibromatosis M72.2 and 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.22 [facility] [address] [address] 04/24/2025 Eriberto Heriberto Plantar fibromatosis M72.2 and 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
--- OUTSIDE RECORDS SUMMARY | 2025-07-06 18:31 | XMS_ITS | Clinical Summary ---
Author Organization [facility] Address [address] [place], [place] [id number] Phone Care Team Providers Care Lay Out Machine Operator Name Role Phone Buck Ling NP Primary [...] topic Medical Devices Not on file Insurance [employer] DIRECT [employer] DIRECT [employer] DIRECT [email or web address] DIRECT DIRECT PLANS DIRECT Care Teams Lay Out Machine Operator Relationship Specialty Start Date End Date Buck Ling NP [address] [place] [address] PCP - General Nurse Practitioner 01/26/23 Additional Source Comments The information contained in this document represents components of the legal health record. It is not the complete legal health record.[facility]
== END 2025-07-06 15:08 | disposition home or self-care (01) ==
LOC: HO.HGI 14:20
PROVIDERS: PCP Nurse Practitioner Family; Visit Provider Nurse Practitioner Family
DX: K21.9 Gastro-esophageal reflux disease without esophagitis (principal); K63.5 Polyp of colon; K57.90 Diverticulosis of intestine, part unspecified, without perforation or abscess without bleeding
CPT/HCPCS: 99213